=== PATIENT | male | born 1945 | race Caucasian/White ===

== ENCOUNTER 2017-05-22 09:46 | Emergency (ER) | payer MEDICARE ==
[~2017-05-22] VITALS: Ht 185.4 cm; Wt 110.2 kg
[~2017-05-22 09:46] MED LIST: ALBU90OI INH; ALLO300 PO; AZIT250 PO; BUME1 PO; BUME2 PO; CLIN300 PO; Cyclobenzaprine5 MG PO; DABI150C; DABI150C PO; GABA800 PO; HYDR1TAB94 PO; LOSA25 PO; LOSA50 PO; MAGIC MOUTHWASH; Norco 5-325 Ta1 EACH PO; PRAV20 PO; PRED20 PO; VERA120ERB PO
[2017-05-22] MEDS ORDERED: XARELTO20 MG PO (10:09)
[2017-05-22 10:10] LABS: BASOPHILS ABSOLUTE AUTO 0.08 K/mm3 (0.00-0.23); BASOPHILS PERCENT AUTO 1 % (0-2); EOSINOPHILS PERCENT AUTO 1 % (0-6); Hematocrit 46.8 % (37.0-53.0); Hemoglobin 15.7 g/dL (13.5-17.5); IMMATURE GRAN ABSOLUTE AUTO 0.06 K/mm3 (0.00-0.10); IMMATURE GRAN PERCENT AUTO 0 % (0-1); LYMPHOCYTES ABSOLUTE AUTO 1.53 K/mm3 (0.84-5.20); LYMPHOCYTES PERCENT AUTO 10 % (21-46); MONOCYTES ABSOLUTE AUTO 1.56 K/mm3 (0.16-1.47); MONOCYTES PERCENT AUTO 10 % (4-13); Mean Corpuscular HGB 29.7 pg (26.0-34.0); Mean Corpuscular HGB Conc 33.5 g/dL (31.5-36.5); Mean Corpuscular Volume 89 fL (80-100); Mean Platelet Volume 10.4 fL (9.1-12.4); NEUTROPHILS ABSOLUTE AUTO 11.86 K/mm3 (1.96-9.15); NEUTROPHILS PERCENT AUTO 78 % (41-73); Platelet Count 507 K/mm3 (150-400); RDW Coefficient Variation 14.5 % (11.7-14.2); RDW Standard Deviation 46.8 fL (35.1-46.3); Red Blood Cell Count 5.29 M/mm3 (4.30-5.90); White Blood Cell Count 15.29 K/mm3 (4.00-11.30)
[2017-05-22 10:24] LABS: Alanine Aminotransfer (ALT/SGP 28 U/L (12-78); Albumin, Blood 4.3 g/dL (3.4-5.0); Albumin/Globulin Ratio 1.4 (0.8-1.8); Alk Phos 68 U/L (50-136); Anion Gap 5 mmol/L (6-16); Aspartate Aminotrans (AST/SGOT 17 U/L (12-37); Bilirubin, Total 1.1 mg/dL (0.1-1.0); Blood Urea Nitrogen 14 mg/dL (8-24); Bun/Creatinine Ratio 15.4 (12.0-20.0); CO2, Blood 30 mmol/L (21-32); Calcium, Blood 9.1 mg/dL (8.5-10.1); Chloride, Blood 101 mmol/L (98-108); Creatinine, Blood 0.91 mg/dL (0.60-1.20); Globulin, Blood 3.1 g/dL (2.2-4.0); Glomerular Filtration Rate >60 (60-); Glucose, Blood 94 mg/dL (70-99); Potassium, Blood 4.2 mmol/L (3.5-5.5); Sodium, Blood 136 mmol/L (136-145); Total Protein, Blood 7.4 g/dL (6.4-8.2); Troponin I <0.015 ng/mL (0.000-0.040)
[2017-05-22] MEDS ORDERED: Celebrex200 MG PO (11:55)
[2017-05-22] MEDS ORDERED: Protonix40 MG PO (11:55)
== END 2017-05-22 12:08 | disposition home or self-care (01) ==
LOC: ER 09:46
PROVIDERS: Emergency Medicine
DX: I31.9 Disease of pericardium, unspecified (principal); I48.91 Unspecified atrial fibrillation; I10 Essential (primary) hypertension; M10.9 Gout, unspecified; Z90.79 Acquired absence of other genital organ(s); Z79.899 Other long term (current) drug therapy; Z88.8 Allergy status to other drugs, medicaments and biological substances; Z98.890 Other specified postprocedural states; Z87.891 Personal history of nicotine dependence; Z85.46 Personal history of malignant neoplasm of prostate
CPT/HCPCS: 71046; 80053; 83880; 84484; 85025; 86140; 93005; 93010; 96372; 99283; J1885

== ENCOUNTER 2019-08-16 09:29 | Inpatient (IN) | payer MEDICARE ==
[~2019-08-16] VITALS: Ht 182.9 cm; Wt 113.4 kg
[~2019-08-16 09:29] MED LIST changes: +Celebrex200 MG PO; +Protonix40 MG PO; +XARELTO20 MG PO
[2019-08-16 09:54] LABS: BASOPHILS ABSOLUTE AUTO 0.15 K/mm3 (0.00-0.23); BASOPHILS PERCENT AUTO 1 % (0-2); EOSINOPHILS ABSOLUTE AUTO 0.19 K/mm3 (0.00-0.68); EOSINOPHILS PERCENT AUTO 1 % (0-6); Hematocrit 33.1 % (37.0-53.0); Hemoglobin 11.7 g/dL (13.5-17.5); IMMATURE GRAN ABSOLUTE AUTO 0.09 K/mm3 (0.00-0.10); IMMATURE GRAN PERCENT AUTO 1 % (0-1); LYMPHOCYTES ABSOLUTE AUTO 1.77 K/mm3 (0.84-5.20); LYMPHOCYTES PERCENT AUTO 13 % (21-46); MONOCYTES ABSOLUTE AUTO 1.18 K/mm3 (0.16-1.47); MONOCYTES PERCENT AUTO 8 % (4-13); Mean Corpuscular HGB 31.3 pg (26.0-34.0); Mean Corpuscular HGB Conc 35.3 g/dL (31.5-36.5); Mean Corpuscular Volume 89 fL (80-100); Mean Platelet Volume 10.3 fL (9.1-12.4); NEUTROPHILS ABSOLUTE AUTO 10.63 K/mm3 (1.96-9.15); NEUTROPHILS PERCENT AUTO 76 % (41-73); Platelet Count 674 K/mm3 (150-400); RDW Coefficient Variation 14.4 % (11.7-14.2); RDW Standard Deviation 46.3 fL (35.1-46.3); Red Blood Cell Count 3.74 M/mm3 (4.30-5.90); White Blood Cell Count 14.01 K/mm3 (4.00-11.30)
[2019-08-16 10:04] LABS: Albumin, Blood 3.4 g/dL (3.4-5.0); Albumin/Globulin Ratio 1.2 (0.8-1.8); Bilirubin, Total 0.5 mg/dL (0.1-1.0); Bun/Creatinine Ratio 20.4 (12.0-20.0); Calcium, Blood 8.5 mg/dL (8.5-10.1); Creatinine, Blood 1.47 mg/dL (0.60-1.20); Globulin, Blood 2.8 g/dL (2.2-4.0); Potassium, Blood 3.1 mmol/L (3.5-5.5); Total Protein, Blood 6.2 g/dL (6.4-8.2)
[2019-08-16 11:43] LABS: Source, Urine Clean Catch
[2019-08-16 12:07] LABS: Appearance, Urine Clear (Clear); Bilirubin, Urine Neg (Neg); Blood, Urine Neg (Neg); Color, Urine Yellow (P-Yellow); Glucose Qualitative, Urine Neg (Neg); Ketones, Urine Neg (Neg); Leukocyte Esterase, Urine Neg (Neg); Nitrite, Urine Neg (Neg); Protein, Urine Neg (Neg); Specific Gravity, Urine 1.015 (1.003-1.022); Urobilinogen, Urine NORM (Normal)
[2019-08-16] MEDS ORDERED: VERAPAMIL PO ×2 (13:52→13:53)
[2019-08-16] MEDS ORDERED: ABIRATERONE AC250 MG PO (13:53)
[2019-08-16] MEDS ORDERED: PRED5 PO (13:53)
[2019-08-16] MEDS ORDERED: Bumetanide2 MG PO (13:54)
[2019-08-16] MEDS ORDERED: NORTRIPTYLINE H25 MG PO (13:54)
[2019-08-16] MEDS ORDERED: LOSARTAN POTAS100 M1 PO (13:55)
[2019-08-16] MEDS ORDERED: DYAZIDE 37.5-21 EACH PO (13:55)
[2019-08-16] MEDS ORDERED: ALLO300 PO (14:16)
[2019-08-16] MEDS ORDERED: XARELTO20 M1 PO (14:20)
[2019-08-17 04:27] LABS: BASOPHILS ABSOLUTE AUTO 0.06 K/mm3 (0.00-0.23); BASOPHILS PERCENT AUTO 0 % (0-2); EOSINOPHILS ABSOLUTE AUTO 0.02 K/mm3 (0.00-0.68); EOSINOPHILS PERCENT AUTO 0 % (0-6); Hematocrit 33.5 % (37.0-53.0); Hemoglobin 11.4 g/dL (13.5-17.5); IMMATURE GRAN PERCENT AUTO 1 % (0-1); LYMPHOCYTES ABSOLUTE AUTO 1.03 K/mm3 (0.84-5.20); LYMPHOCYTES PERCENT AUTO 6 % (21-46); MONOCYTES ABSOLUTE AUTO 0.51 K/mm3 (0.16-1.47); MONOCYTES PERCENT AUTO 3 % (4-13); Mean Corpuscular HGB 30.8 pg (26.0-34.0); Mean Corpuscular Volume 91 fL (80-100); NEUTROPHILS ABSOLUTE AUTO 14.26 K/mm3 (1.96-9.15); NEUTROPHILS PERCENT AUTO 89 % (41-73); Platelet Count 566 K/mm3 (150-400); RDW Coefficient Variation 14.5 % (11.7-14.2); RDW Standard Deviation 47.8 fL (35.1-46.3); White Blood Cell Count 16.08 K/mm3 (4.00-11.30)
[2019-08-17 04:42] LABS: Bun/Creatinine Ratio 21.4 (12.0-20.0); Calcium, Blood 8.7 mg/dL (8.5-10.1); Creatinine, Blood 1.26 mg/dL (0.60-1.20)
--- NOTE | 2019-08-17 05:26 | NUR ---
SHIFT SUMMARY: PATIENT ALERT AND ORIENTED AND COOPERATIVE WITH CARE. PATIENT ABLE TO STANB BY BED WITH FWW TO USE THE URINAL, MINIMAL ASSIST NEEDED. VSS, CALL LIGHT WITHIN REACH, BED LOW AND LOCKED WITH EXIT ALARM ON.
--- NOTE | 2019-08-17 09:45 | NUR ---
PT STATUS CHANGED TO MEDICAL STATUS WITHOUT TELE, VITALS HAS BEEN STABLE FOR THE SHIFT HRR AFIB ON THE 90'S DENIES CHEST PAIN/PRESSURE. SATS ABOVE 92% ON ROOMAIR, DENIES SOB. PT STILL C/O OF SOME LEG WEAKNESS PHYSICAL THERAPY ORDERED. USES FWW 1PA FOR TRANSFERS. 500 MLS NS BAG STARTED AT 200MLS/HR FOR 1 BAG. LABS ORDERED THIS AFTERNOON. LAST CBG WAS 126. PT TRANSFERRED TO 337 VIA WHEELCHAIR ACCOMPANIED BY SPINE SUPERVISOR. ALL BELONGINGS AND HOME MEDICATIONS SENT WITH PATIENT. REPORT GIVEN TO GINGER PERRY RN.
[2019-08-17] MEDS ORDERED: METANX PO (09:58)
[2019-08-17] MEDS ORDERED: ZYTIGA250 MG PO (09:58)
--- NOTE | 2019-08-17 10:29 | NUR ---
PCU TRANSFER- PT ARRIVED TO ROOM 337 VIA W/C, 1 ASSIST INTO CHAIR. PT A/OX4, DENIES ANY PAIN OR OTHER COMPLAINTS. LS CLEAR, ON RA. PT REPORTS CHRONIC DRY COUGH. PT REPORTS CHRONIC NEUROPAHTY, PT REQUESTING HOME MED METANX. CALLED AND SPOKE WITH DR ROBBINS AND OK TO START HOME MED. LEFT ARM NOTED TO BE SWOLLEN, IV DC'D. NS RUNNING AT 200ML/HR X500ML TO RAC IV. PT ORIENTED TO ROOM AND CALL SYSTEM, CALL LIGHT IN REACH.
--- NOTE | 2019-08-17 11:41 | NUR ---
PT BLOOD GLUCOSE NOTED TO BE 53, PT ASYMPTOMATIC. ORANGE JUICE GIVEN WELL LUNCH. WILL CONT TO MONITOR.
[2019-08-17 13:51] LABS: Bun/Creatinine Ratio 20.7 (12.0-20.0); Calcium, Blood 9.2 mg/dL (8.5-10.1); Creatinine, Blood 1.35 mg/dL (0.60-1.20); Potassium, Blood 3.7 mmol/L (3.5-5.5)
--- NOTE | 2019-08-17 15:21 | NUR ---
SHIFT SUMMARY- PCU TRANSFER TODAY. PT A/OX4, 1 ASSIST WITH FWW. PT DENIES ANY COMPLAINTS SINCE ARRIVAL TO FLOOR. LS CLEAR, ON RA. PT WITH CHRONIC AFIB. 500ML NS GIVEN FOR NA OF 126, NA REMAINS AT 125 WITH AFTERNOON LABS. AFTERNOON BLOOD GLUCOSE OF 53, OJ AND LUNCH GIVEN AND GLUCOSE INCREASED TO 123. PER DR ROBBINS NOTIFY HIM IF GLUCOSE LESS THAN 70. NO OTHER ACUTE CHANGES SINCE ARRIVAL TO FLOOR.
--- NOTE | 2019-08-17 17:23 | NUR ---
CBG WAS NOTIFIED BY THE PRIVATE WEALTH ADVISOR THAT THE CBG WAS 36, CALLED DR ROBBINS, SEE NEW ORDERS, STAT LABS DRAWN, PT GIVEN JUICE, PT REPORTS FEELING SHAKY, WILL START FLUIDS WELL
--- NOTE | 2019-08-17 17:39 | NUR ---
Pt resting in bed upon arrival. Pt is A&O and denies pain and dyspnea at this time. Pt reports significant pain when standing and ambulating due to mta to the bones. Pt reports living by himself and family lives in [place]. Pt reports seeing oncologist in [place]. Dr Du in to visit with Pt and discusses plan including additional lab draws. Pt's blood sugars have been running low with most recent sugar in the 30's. Continued conversation. Suggested having a conversation with his oncologist regarding pain management to assist in improving quality of life. Pt is receptive to this discussion. Pt's dinner arrives and this RN ends visit. Pt agreeable for continued Palliative Care visits. Spoke with Bedside LETTY Mcknight and discussed case. Palliative Care will remain available.
--- NOTE | 2019-08-17 17:52 | NUR ---
SNACKS EDUCATED PT ABOUT THE IMPORTANCE TO EAT EVERY FEW HOURS, SNACKS THAT CAN REMAIN AT THE BEDSIDE PROVIDED
[2019-08-17 18:11] LABS: Bun/Creatinine Ratio 20.9 (12.0-20.0); Calcium, Blood 9.1 mg/dL (8.5-10.1); Creatinine, Blood 1.34 mg/dL (0.60-1.20); Potassium, Blood 3.5 mmol/L (3.5-5.5)
--- NOTE | 2019-08-18 04:03 | NUR ---
SHIFT SUMMARY PT HAS RESTED WELL THIS SHIFT. BLOOD SUGARS HAVE BEEN STABLE WITH REPEATED CHECKS ORDERED. PT HAS BEEN EDUCATED TO CALL IF HE FEELS THE EFFECTS OF HYPOGLYCEMIA AND HAS BEEN PROVIDED SNACKS. PT HAS RECEIVED ONE FULL LITER OF DEXTROSE 5%. VITALS HAVE BEEN STABLE. PT REPORTS NO BM IN FOUR DAYS. DAYSHIFT PROVIDED PT WITH TWO SMALL CONTAINERS OF PRUNE JUICE AND HE HAS HAD THREE LOOSE STOOLS. PT A/OX4, PLESANT WITH CARE. 1 PA OOB. BED IN LOWEST POSITION, CALL LIGHT WITHIN REACH. WILL CONTINUE TO MONITOR AND REPORT TO ONCOMING RN.
--- NOTE | 2019-08-18 05:59 | NUR ---
BLOOD GLUCOSE BLOOD GLUCOSE 87 WITH AM CHECK. PT ATE SOME RAMIN CRACKERS. PT NOW EATING MANDARIN ORANGES WITH LIGHT SYRUP TO KEEP BG UP. PT STATES HE IS FEELING OK.
[2019-08-18 07:08] LABS: C-PEPTIDE, SERUM 12.4 ng/mL (1.1-4.4)
--- NOTE | 2019-08-18 10:29 | NUR ---
Pt resting in bed and denies pain at this time. Listened as Pt discusses plan for SNF and appears to be agreeable. Pt reports hospice was mentioned by staff and he is not ready for hospice. Listened as Pt reports planing for the future as the cancer takes its coarse. He inquires how to be placed into a highter level of care. Instructed on ways for payment source and on level of need. Pt reports being a Vet and would like to investigate benefits available to hime from the [facility]. Continued therapeutic listening and answered questions. Pt expresses appreciation of visit and reports no other concerns at this time. Spoke with Bedside RN Lion and discussed case. Spoke with Caremanbalbina Lerma and relayed Pt's concerns. Maria Guadalupe will call [place] and assist. Palliative Care will remain available.
[2019-08-18 12:22] LABS: Glucose, Blood 92 mg/dL (70-99)
--- NOTE | 2019-08-18 12:54 | NUR ---
SON CALLED and stated that his father is drunk most days that he starts out with beer in the am and progresses to vodka, informed and said to start him on a ciwa, finger stick came back at 37, called for stat blood draw as directed by , came back 82, said to stop all finger ck's, pt is a+o, was given oj after blood draw, also at all of lunch, states he is feeling great, noted fingers are blue and tremulos
[2019-08-18 15:48] LABS: Bun/Creatinine Ratio 16.8 (12.0-20.0); Calcium, Blood 8.9 mg/dL (8.5-10.1); Creatinine, Blood 1.37 mg/dL (0.60-1.20); Potassium, Blood 4.1 mmol/L (3.5-5.5)
--- NOTE | 2019-08-18 18:07 | NUR ---
A+O, CWIWA OF 4 R/TREMOR, FINGERS AND TOES REMAIN CYNOTIC, PT STATES NORMAL, WARM BUT SLOW TO PROFUSE, CALL LIGHT IN REACH, DENIES FEELING AN S/SX OF HYPOCLYCIMIA, SALINE LOCKED, RM AIR, NO ACUTE CHANGES NOTED DURING SHIFT WILL SHARE BSR WITH NOC NURSE AND PT
--- NOTE | 2019-08-18 18:31 | NUR ---
Initial spiritual care note: Mr. Eric was pleasantly dismissive. He states that he is awaiting bloodwork results to determine POC with regard to his cancer. He admitted to feeling concerned, but did not wish to elaborate. I will remain available.
[2019-08-19 05:44] LABS: Anion Gap 3 mmol/L (6-16); Blood Urea Nitrogen 23 mg/dL (8-24); Bun/Creatinine Ratio 18.5 (12.0-20.0); CO2, Blood 32 mmol/L (21-32); Calcium, Blood 9.2 mg/dL (8.5-10.1); Chloride, Blood 96 mmol/L (98-108); Creatinine, Blood 1.24 mg/dL (0.60-1.20); Glomerular Filtration Rate >60 (60-); Glucose, Blood 108 mg/dL (70-99); Potassium, Blood 3.9 mmol/L (3.5-5.5); Sodium, Blood 131 mmol/L (136-145)
--- NOTE | 2019-08-19 06:33 | NUR ---
SHIFT SUMMARY A/O, ABLE TO MAKE NEEDS KNOWN. COOPERATIVE WITH CARE. CALLS AND ANSWERS QUESTIONS APPROPRIATELY. NO C/O PAIN/DISCOMFORT. APPEARED TO SLEEP SOME T/O SHIFT. NO ACUTE CHANGES NOTED OVERNIGHT. VSS/AFEBRILE. GLUCOSE THIS AM 108. BED REMAINED IN LOWEST POSITION. CALL LIGHT AND BELONGINGS WITHIN REACH. WCTM. REPORT TO ONCPATSY RN.
--- NOTE | 2019-08-19 17:10 | NUR ---
a+o, states he wants to wait one more day to work with pt and then go home rather than to a snf, call light in reach, saline locked, rm air, will continue to monoitor and treat until share bsr with noc nurse and pt, fingers less blue,
[2019-08-20 05:20] LABS: Bun/Creatinine Ratio 16.3 (12.0-20.0); Calcium, Blood 8.9 mg/dL (8.5-10.1); Creatinine, Blood 1.29 mg/dL (0.60-1.20); Potassium, Blood 3.9 mmol/L (3.5-5.5)
--- NOTE | 2019-08-20 07:13 | NUR ---
08/20/19 0600 Pt awake and watching TV.. States he slept on and off.Vitals stable. Denies any s/s or discomfort this shift.Uneventful night.
[2019-08-20] MEDS ORDERED: BUME1 PO (12:12)
--- NOTE | 2019-08-20 13:07 | NUR ---
PT TO DISCHARGE HOME. IV REMOVED. PT EDUCATED REGARDING NEW MED ADMINISTRATION AND DOSE. MEDS FAXED TO PHARMACY. PT INSTRUCTED TO FOLLOW UP WITH DOCTOR. PT TAKEN DOWN BY WC TO CAR AND TAKEN HOME WITH TAO
== END 2019-08-20 12:34 | disposition home health service (06) | DRG 315 ==
LOC: ER 09:29 → PCU 09:30 → MEDS 08-17 09:49
PROVIDERS: Emergency Medicine; Physician Assistant; ADMIT Hospitalist
DX: I95.9 Hypotension, unspecified (principal); I50.22 Chronic systolic (congestive) heart failure; I48.20 Chronic atrial fibrillation, unspecified; C79.51 Secondary malignant neoplasm of bone; Z87.891 Personal history of nicotine dependence; M10.9 Gout, unspecified; I11.0 Hypertensive heart disease with heart failure; E16.2 Hypoglycemia, unspecified; E86.1 Hypovolemia; E87.6 Hypokalemia; C61 Malignant neoplasm of prostate; R29.6 Repeated falls; T50.1X5A Adverse effect of loop [high-ceiling] diuretics, initial encounter; Y92.9 Unspecified place or not applicable
CPT/HCPCS: 36415; 70450; 71045; 76705; 80048; 80053; 81003; 82024; 82533; 82947; 83525; 83527; 83605; 83880; 84206; 84681; 85025; 87040; 93005; 93010; 96361; 96365; 96366; 96368; 96375; 96376; 97110; 97116; 97162; 97530; 99285-25; G0378; J1720; J2543; J7030; J7040; J7060; J7070

== ENCOUNTER → 2019-10-20 | Outpatient (CLI) | payer MEDICARE ==
[~2019-10-20] MED LIST changes: +ABIRATERONE AC250 MG PO; +Bumetanide2 MG PO; +DYAZIDE 37.5-21 EACH PO; +LOSARTAN POTAS100 M1 PO; +METANX PO; +NORTRIPTYLINE H25 MG PO; +PRED5 PO; +VERAPAMIL PO; +XARELTO20 M1 PO; +ZYTIGA250 MG PO
== END | disposition home or self-care (01) ==
LOC: PLD 13:23 → LAB SHORT 13:23
DX: L60.2 Onychogryphosis (principal); B35.1 Tinea unguium
CPT/HCPCS: 88305; 88312

== ENCOUNTER 2020-11-22 10:22 | Emergency (ER) | payer MEDICARE ==
[~2020-11-22] VITALS: Ht 182.9 cm; Wt 119.8 kg
[2020-11-22 10:48] LABS: BASOPHILS ABSOLUTE AUTO 0.17 K/mm3 (0.00-0.23); BASOPHILS PERCENT AUTO 1 % (0-2); EOSINOPHILS ABSOLUTE AUTO 0.02 K/mm3 (0.00-0.68); EOSINOPHILS PERCENT AUTO 0 % (0-6); Hematocrit 36.5 % (37.0-53.0); Hemoglobin 11.6 g/dL (13.5-17.5); IMMATURE GRAN ABSOLUTE AUTO 0.39 K/mm3 (0.00-0.10); IMMATURE GRAN PERCENT AUTO 2 % (0-1); LYMPHOCYTES ABSOLUTE AUTO 0.98 K/mm3 (0.84-5.20); LYMPHOCYTES PERCENT AUTO 5 % (21-46); MONOCYTES ABSOLUTE AUTO 0.57 K/mm3 (0.16-1.47); MONOCYTES PERCENT AUTO 3 % (4-13); Mean Corpuscular HGB 27.3 pg (26.0-34.0); Mean Corpuscular HGB Conc 31.8 g/dL (31.5-36.5); Mean Corpuscular Volume 86 fL (80-100); Mean Platelet Volume 10.2 fL (9.1-12.4); NEUTROPHILS ABSOLUTE AUTO 17.54 K/mm3 (1.96-9.15); NEUTROPHILS PERCENT AUTO 89 % (41-73); Platelet Count 668 K/mm3 (150-400); RDW Coefficient Variation 17.6 % (11.7-14.2); RDW Standard Deviation 54.6 fL (35.1-46.3); Red Blood Cell Count 4.25 M/mm3 (4.30-5.90); White Blood Cell Count 19.67 K/mm3 (4.00-11.30)
[2020-11-22 11:07] LABS: Alanine Aminotransfer (ALT/SGP 17 U/L (12-78); Albumin, Blood 3.3 g/dL (3.4-5.0); Albumin/Globulin Ratio 1.2 (0.8-1.8); Alk Phos 158 U/L (50-136); Anion Gap 6 mmol/L (6-16); Aspartate Aminotrans (AST/SGOT 11 U/L (12-37); Bilirubin, Total 0.6 mg/dL (0.1-1.0); Blood Urea Nitrogen 6 mg/dL (8-24); Bun/Creatinine Ratio 6.2 (12.0-20.0); CO2, Blood 26 mmol/L (21-32); Calcium, Blood 7.6 mg/dL (8.5-10.1); Chloride, Blood 109 mmol/L (98-108); Creatinine, Blood 0.96 mg/dL (0.60-1.20); Globulin, Blood 2.7 g/dL (2.2-4.0); Glomerular Filtration Rate >60 (60-); Glucose, Blood 98 mg/dL (70-99); Sodium, Blood 141 mmol/L (136-145)
[2020-11-22 12:36] LABS: Source, Urine Clean Catch
[2020-11-22 12:49] LABS: Bilirubin, Urine Neg (Neg); Blood, Urine Neg (Neg); Color, Urine Yellow (P-Yellow); Glucose Qualitative, Urine Neg (Neg); Ketones, Urine Neg (Neg); Leukocyte Esterase, Urine Neg (Neg); Nitrite, Urine Neg (Neg); Protein, Urine Neg (Neg); Urobilinogen, Urine NORM (Normal)
[2020-11-22 13:08] LABS: Appearance, Urine Clear (Clear)
[2020-11-22 13:34] LABS: SARS-Cov-2 (COVID-19) PCR, MMC NEGATIVE (NEGATIVE)
== END 2020-11-22 14:50 | disposition home or self-care (01) ==
LOC: ER 10:22
PROVIDERS: Emergency Medicine
DX: R42 Dizziness and giddiness (principal); D72.829 Elevated white blood cell count, unspecified; Z20.822 Contact with and (suspected) exposure to COVID-19; I11.0 Hypertensive heart disease with heart failure; I50.20 Unspecified systolic (congestive) heart failure; I48.20 Chronic atrial fibrillation, unspecified; M10.9 Gout, unspecified; Z79.01 Long term (current) use of anticoagulants; Z88.8 Allergy status to other drugs, medicaments and biological substances; Z79.899 Other long term (current) drug therapy; Z85.46 Personal history of malignant neoplasm of prostate
CPT/HCPCS: 36415; 70450; 71045; 80053; 81003; 83605; 84145; 84484; 85025; 93005; 93010; 99285-25; A9270; J7030; U0004

== ENCOUNTER 2021-07-08 08:05 | Emergency (ER) | payer OTHER ==
[~2021-07-08] VITALS: Ht 182.9 cm; Wt 111.1 kg
[2021-07-08] MEDS ORDERED: ONDA4ODT MM (08:18)
[2021-07-08] MEDS ORDERED: DECADRON4 M1 PO (08:19)
[2021-07-08 09:04] LABS: Mean Corpuscular HGB 29.8 pg (26.0-34.0); Mean Corpuscular HGB Conc 32.4 g/dL (31.5-36.5); Mean Corpuscular Volume 92 fL (80-100); Mean Platelet Volume 11.3 fL (9.1-12.4); Platelet Count 214 K/mm3 (150-400); RDW Coefficient Variation 18.4 % (11.7-14.2); Red Blood Cell Count 3.69 M/mm3 (4.30-5.90); White Blood Cell Count 11.42 K/mm3 (4.00-11.30)
[2021-07-08 09:28] LABS: Alanine Aminotransfer (ALT/SGP 35 U/L (12-78); Albumin, Blood 3.1 g/dL (3.4-5.0); Albumin/Globulin Ratio 1.3 (0.8-1.8); Alk Phos 164 U/L (50-136); Anion Gap 6 mmol/L (6-16); Aspartate Aminotrans (AST/SGOT 20 U/L (12-37); Bilirubin, Total 0.8 mg/dL (0.1-1.0); Blood Urea Nitrogen 15 mg/dL (8-24); Bun/Creatinine Ratio 17.5 (12.0-20.0); CO2, Blood 28 mmol/L (21-32); Calcium, Blood 7.5 mg/dL (8.5-10.1); Chloride, Blood 105 mmol/L (98-108); Creatinine, Blood 0.86 mg/dL (0.60-1.20); Globulin, Blood 2.4 g/dL (2.2-4.0); Glomerular Filtration Rate >60 (60-); Glucose, Blood 93 mg/dL (70-99); Sodium, Blood 139 mmol/L (136-145); Total Protein, Blood 5.5 g/dL (6.4-8.2)
[2021-07-08 09:43] LABS: Source, Urine Clean Catch
[2021-07-08 09:49] LABS: BAND PERCENT MAN 22 % (0-8); BASOPHILS PERCENT MAN 0 % (0-2); EOSINOPHILS ABSOLUTE MAN 0.11 K/mm3 (0.00-0.68); EOSINOPHILS PERCENT MAN 1 % (0-6); LYMPHOCYTES ABSOLUTE MAN 1.02 K/mm3 (0.84-5.20); LYMPHOCYTES PERCENT MAN 9 % (21-46); MONOCYTES ABSOLUTE MAN 0.57 K/mm3 (0.16-1.47); MONOCYTES PERCENT MAN 5 % (4-13); TOTAL CELLS COUNTED 100
[2021-07-08 09:54] LABS: Appearance, Urine Cloudy (Clear); Bilirubin, Urine Neg (Neg); Blood, Urine 5+ (Neg); Glucose Qualitative, Urine Neg (Neg); Ketones, Urine Neg (Neg); Leukocyte Esterase, Urine 1+ (Neg); Nitrite, Urine Neg (Neg); Protein, Urine 3+ (Neg); Urobilinogen, Urine NORM (Normal); pH, Urine 6.5 (5.0-8.0)
[2021-07-08 10:00] LABS: SEG NEUTROPHILS PERCENT MAN 63 % (41-73)
[2021-07-08 10:06] LABS: Color, Urine Red (P-Yellow)
[2021-07-08 10:07] LABS: Bacteria Few /hpf; Red Blood Cells, Urine TNTC /hpf (0-2); Squamous Epithelial Cells Not Seen /hpf (Few)
[2021-07-08] MEDS ORDERED: SULTRIDS PO (10:24)
== END 2021-07-08 10:55 | disposition home or self-care (01) ==
LOC: ER 08:05
PROVIDERS: Student in an Organized Health Care Education/Training Program
DX: N30.91 Cystitis, unspecified with hematuria (principal); C61 Malignant neoplasm of prostate; C79.51 Secondary malignant neoplasm of bone; C79.2 Secondary malignant neoplasm of skin; I48.91 Unspecified atrial fibrillation; I11.0 Hypertensive heart disease with heart failure; I50.20 Unspecified systolic (congestive) heart failure; Z88.8 Allergy status to other drugs, medicaments and biological substances; Z79.899 Other long term (current) drug therapy; Z79.01 Long term (current) use of anticoagulants
CPT/HCPCS: 74177; 80053; 81001; 85025; A9270; Q9967

== ENCOUNTER 2021-08-30 11:44 | Inpatient (IN) | payer OTHER ==
[~2021-08-30] VITALS: Ht 177.8 cm; Wt 113.6 kg
[~2021-08-30 11:44] MED LIST changes: +CIPR500 PO; +DECADRON4 M1 PO; +ONDA4ODT MM; +SULTRIDS PO
[2021-08-30 12:46] LABS: Hematocrit 24.9 % (37.0-53.0); Hemoglobin 8.2 g/dL (13.5-17.5); Mean Corpuscular HGB 30.4 pg (26.0-34.0); Mean Corpuscular HGB Conc 32.9 g/dL (31.5-36.5); Mean Corpuscular Volume 92 fL (80-100); RDW Coefficient Variation 16.1 % (11.7-14.2); RDW Standard Deviation 54.1 fL (35.1-46.3)
[2021-08-30 12:59] LABS: Albumin, Blood 2.9 g/dL (3.4-5.0); Albumin/Globulin Ratio 1.2 (0.8-1.8); Bilirubin, Total 0.9 mg/dL (0.1-1.0); Bun/Creatinine Ratio 19.6 (12.0-20.0); Calcium, Blood 7.8 mg/dL (8.5-10.1); Creatinine, Blood 0.82 mg/dL (0.60-1.20); Globulin, Blood 2.4 g/dL (2.2-4.0); Total Protein, Blood 5.3 g/dL (6.4-8.2)
[2021-08-30 13:16] LABS: White Blood Cell Count 0.53 K/mm3 (4.00-11.30)
[2021-08-30 13:17] LABS: Platelet Count 26 K/mm3 (150-400)
[2021-08-30 13:30] LABS: BAND PERCENT MAN 4 % (0-8); BASOPHILS ABSOLUTE MAN 0.02 K/mm3 (0.00-0.23); BASOPHILS PERCENT MAN 4 % (0-2); EOSINOPHILS PERCENT MAN 0 % (0-6); LYMPHOCYTES PERCENT MAN 76 % (21-46); MONOCYTES ABSOLUTE MAN 0.06 K/mm3 (0.16-1.47); MONOCYTES PERCENT MAN 12 % (4-13); NEUTROPHILS ABSOLUTE MAN 0.04 K/mm3 (1.96-9.15); SEG NEUTROPHILS PERCENT MAN 4 % (41-73); TOTAL CELLS COUNTED 25
[2021-08-30 14:51] LABS: Source, Urine Clean Catch
[2021-08-30 14:53] LABS: Appearance, Urine Clear (Clear); Bilirubin, Urine Neg (Neg); Blood, Urine Neg (Neg); Color, Urine Yellow (P-Yellow); Glucose Qualitative, Urine Neg (Neg); Ketones, Urine Neg (Neg); Leukocyte Esterase, Urine Neg (Neg); Nitrite, Urine Neg (Neg); Protein, Urine Neg (Neg); Specific Gravity, Urine 1.005 (1.003-1.022); Urobilinogen, Urine NORM (Normal)
[2021-08-30 16:46] LABS: Influenza A, PCR NEGATIVE (NEGATIVE); Influenza B, PCR NEGATIVE (NEGATIVE); Resp Syncytial Virus, PCR NEGATIVE (NEGATIVE); SARS-Cov-2 (COVID-19) PCR, MMC NEGATIVE (NEGATIVE)
--- NOTE | 2021-08-30 19:16 | NUR ---
SHIFT SUMMARY- PT ALERT AND ORIENTED 1P SBA FOR TRANSFERS AND AMBULATION. PPT ADMITTED THROUGH THE ED, DENIES ANY PAIN. CALLED PALLIATIVE CARE FOR ASSISTANCE WITH FILLING OUT THE ADVANCED DIRECTIVE. PT STATED HE IS CURRENTLY A FULL CODE BUT HE DOES NOT WANT TO BE ON [facility] FOR MORE THAN 10 DAYS. PT CURRENTLY IN BED, CALL LIGHT IN REACH NO S&S OF DISTRESS NOTED ON ROOM AIR. BEDSIDE REPORT COMPLETED
[2021-08-31] MEDS ORDERED: ELIQUIS2.5 MG PO (00:36)
[2021-08-31 05:15] LABS: Bun/Creatinine Ratio 17.4 (12.0-20.0); Calcium, Blood 7.7 mg/dL (8.5-10.1); Creatinine, Blood 0.81 mg/dL (0.60-1.20); Potassium, Blood 3.9 mmol/L (3.5-5.5)
--- NOTE | 2021-08-31 05:21 | NUR ---
PT A/OX4, VERY PLEASANT AND LUIS FELIPE TO MAKE NEEDS KNOWN. PER RN REPORT REQUEST FOR PT MEDICATION LIST [facility] TO [facility] AND AWAITING DOCUMENT. PT ASKED ABOUT HIS MEDICATIONS AND LUIS FELIPE TO PROVIDE SOME INFORMATION HOWEVER HE IS NOT 100% SURE. PER PT HE NO LONGER TAKES THE STEROID AND XARELTO WAS STOPPED AND CHANGED TO ELIQUIS BID. HE IS UNSURE OF THE DOSE OF THE ELIQUIS. PT ALSO REPORTS THE BUMEX WAS INCREASED TO 1.5 MG AND IT IS DAILY NOT EVERY OTHER DAY. MED LIST UPDATED HOWEVER DUE TO PT NOT BEING 100% SURE OF THIS WILL AWAIT FOR LIST TO COMPLETE. VERAPIMIL HELD OVERNIGHT DUE TO BP 105/62. PT ALSO REPORTS THAT HE TAKES THIS IN THE MORNING NOT AT NIGHT-TIMING MODIFIED TO REFLECT PT SCHEDULE. PT W/O NEW COMPLAINS OR CHANGES.
[2021-08-31 06:12] LABS: Hematocrit 23.9 % (37.0-53.0); Hemoglobin 7.6 g/dL (13.5-17.5); Mean Corpuscular HGB Conc 31.8 g/dL (31.5-36.5); Mean Corpuscular Volume 95 fL (80-100); Mean Platelet Volume 12.5 fL (9.1-12.4); RDW Standard Deviation 54.9 fL (35.1-46.3); Red Blood Cell Count 2.53 M/mm3 (4.30-5.90)
[2021-08-31 07:16] LABS: BAND PERCENT MAN 2 % (0-8); BASOPHILS PERCENT MAN 4 % (0-2); EOSINOPHILS PERCENT MAN 1 % (0-6); LYMPHOCYTES PERCENT MAN 49 % (21-46); METAMYELOCYTE PERCENT MAN 1 % (0-0); MONOCYTES PERCENT MAN 18 % (4-13); SEG NEUTROPHILS PERCENT MAN 25 % (41-73); TOTAL CELLS COUNTED 100
[2021-08-31 07:19] LABS: BASOPHILS ABSOLUTE AUTO 0.01 K/mm3 (0.00-0.23); BASOPHILS PERCENT AUTO 1 % (0-2); EOSINOPHILS PERCENT AUTO 0 % (0-6); IMMATURE GRAN ABSOLUTE AUTO 0.01 K/mm3 (0.00-0.10); IMMATURE GRAN PERCENT AUTO 1 % (0-1); LYMPHOCYTES ABSOLUTE AUTO 0.46 K/mm3 (0.84-5.20); LYMPHOCYTES PERCENT AUTO 51 % (21-46); MONOCYTES ABSOLUTE AUTO 0.12 K/mm3 (0.16-1.47); MONOCYTES PERCENT AUTO 13 % (4-13); NEUTROPHILS ABSOLUTE MAN 0.24 K/mm3 (1.96-9.15); NEUTROPHILS PERCENT AUTO 33 % (41-73)
[2021-08-31 07:21] LABS: Platelet Count 21 K/mm3 (150-400)
--- NOTE | 2021-08-31 07:28 | NUR ---
PT WITH POSITIVE BLOOD CX GRAM + COCCI IN CHAINS, WBC 0.9 AND PLT 21. LAB ALSO WANTING TO KNOW IF PT WILL BE NEEDING PLATELET TRANSFUSION TO ENSURE THEY HAVE PLT AVAILABLE. ENDORSE TO ONCOMING RN. RN TO NOTIFY MD OF ABOVE.
[2021-08-31] MEDS ORDERED: MECL12.5 PO (11:33)
[2021-08-31] MEDS ORDERED: POTA10T PO (11:40)
[2021-08-31] MEDS ORDERED: Prednisone10 MG PO (11:43)
[2021-08-31] MEDS ORDERED: VITAMIN D5000 UNIT PO (11:48)
--- NOTE | 2021-08-31 11:49 | NUR ---
Spiritual Care Request. Pt. is awake in bed and welcomes my visit. After introductions he denied requesting spiritual care, but this manager of supply chain normalized the pt. expereince and continued to develop rapport. Pt. verbalized awareness of the serious nature of his cancer, and that the doctors have just about "run out of options." With a calming presence and theraputic listening continued to build rapport. Though Pt. wasn't interested in spiritual care, Pt. verbalize a request that I return.
[2021-08-31] MEDS ORDERED: ALEVAZOL56.7 G1 TOP (11:53)
[2021-08-31] MEDS ORDERED: GORMEL TEN228 G1 TOP (11:54)
[2021-08-31] MEDS ORDERED: PRAV20 PO (11:56)
[2021-08-31] MEDS ORDERED: DECADRON4 M1 PO (11:59)
--- NOTE | 2021-08-31 12:13 | NUR ---
pt anxious waiting for Dr Eugene to come see him. He want to wait to fill out his AD he is not sure the physician will offer him any more treatment. Discussed his future he lives alone in a rental up in [place]. Asked if he would move to [place] to be by his son. He did not want to do that and burden his sone. He stated he has been falling and fell out of his jeep. gently started a conversation on planning for the future. Updated college and career counselor will follow up with pt after Dr. Eugene speaks to him.
--- NOTE | 2021-08-31 19:40 | NUR ---
PATIENT IS ALERT AND ORIENTED. C/O SORE THROAT, MEDICATED PER EMAR. SBA TO THE BATHROOM. CALLS APPROPRIATELY. NO NEW CONCERNS.
[2021-09-01 05:22] LABS: Hematocrit 27.8 % (37.0-53.0); Hemoglobin 8.7 g/dL (13.5-17.5); Mean Corpuscular HGB Conc 31.3 g/dL (31.5-36.5); Mean Corpuscular Volume 96 fL (80-100); RDW Coefficient Variation 16.2 % (11.7-14.2); RDW Standard Deviation 56.3 fL (35.1-46.3); White Blood Cell Count 2.18 K/mm3 (4.00-11.30)
--- NOTE | 2021-09-01 05:24 | NUR ---
PATIENT IS A&OX4 AND VERY PLEASANT AND COOPERATIVE WITH CARE. DEEDEE DID HAVE DIFFICULTY SLEEPING UNTIL HE RECEIVED CORRECTED DOSE OF NORTRIPTYLINE (100MG) AFTER MIDNIGHT. MINIMAL COMPLAINTS OF DISCOMFORT OTHER THAN LOW BACK WHICH IS CHRONIC FOR HIM. HE WAS ABLE TO RESOLVE THAT WITH ASSISTED POSITION CHANGES. CEPACOL LOSENGES GIVEN TWICE PER REQUEST FOR SORE THROAT. WEAK. CALLS APPROPRIATELY PLACED FOR ASSIST OOB.
[2021-09-01 05:56] LABS: Mean Platelet Volume 12.8 fL (9.1-12.4); Platelet Count 35 K/mm3 (150-400)
[2021-09-01 06:12] LABS: BAND PERCENT MAN 16 % (0-8); BASOPHILS ABSOLUTE MAN 0.04 K/mm3 (0.00-0.23); BASOPHILS PERCENT MAN 2 % (0-2); EOSINOPHILS ABSOLUTE MAN 0.02 K/mm3 (0.00-0.68); EOSINOPHILS PERCENT MAN 1 % (0-6); LYMPHOCYTES ABSOLUTE MAN 0.45 K/mm3 (0.84-5.20); LYMPHOCYTES PERCENT MAN 21 % (21-46); METAMYELOCYTE ABSOLUTE MAN 0.02 K/mm3 (0.00-0.00); METAMYELOCYTE PERCENT MAN 1 % (0-0); MONOCYTES ABSOLUTE MAN 0.39 K/mm3 (0.16-1.47); MONOCYTES PERCENT MAN 18 % (4-13); MYELOCYTE ABSOLUTE MAN 0.08 K/mm3 (0.00-0.00); MYELOCYTE PERCENT MAN 4 % (0-0); NEUTROPHILS ABSOLUTE MAN 1.15 K/mm3 (1.96-9.15); SEG NEUTROPHILS PERCENT MAN 37 % (41-73); TOTAL CELLS COUNTED 100
--- NOTE | 2021-09-01 08:00 | NUR ---
pt laying in bed watching tv, a/ox3, pleasant and cooperative with care, follows commands well, denies pain, or any needs, lungs are dim t/o, resp even and unlabored, no cough noted, on r/a, hrirr, tele in place, running afib per montior, see strip, trace edema noted to b/l le, voids without diff, skin has red lower ext from knee down, no open areas, muscles are very hard, pt can ambulate using a walker, but he reports he is unsteady and has been having falls, piv to rac, site is clear and patent, jagjit, call light in reach.
--- NOTE | 2021-09-01 18:11 | NUR ---
pt had an uneventful day, no complaints of pain, no acute changes this shift. call light in reach.
[2021-09-02 06:02] LABS: Hematocrit 27.5 % (37.0-53.0); Hemoglobin 8.8 g/dL (13.5-17.5); Mean Corpuscular HGB 30.3 pg (26.0-34.0); Mean Corpuscular Volume 95 fL (80-100); Mean Platelet Volume 11.3 fL (9.1-12.4); NRBC ABSOLUTE 0.03 K/mm3 (0.00-0.02); NRBC Auto 0.7 /100 WBC (0.0-0.2); Platelet Count 65 K/mm3 (150-400); RDW Coefficient Variation 15.9 % (11.7-14.2); RDW Standard Deviation 54.5 fL (35.1-46.3); White Blood Cell Count 4.61 K/mm3 (4.00-11.30)
--- NOTE | 2021-09-02 06:07 | NUR ---
DEEDEE HAD A MUCH BETTER SLEEP HE RECEIVED HIS FULL DOSE OF PAMELOR AT HS. NO COMPLAINTS OF PAIN OR DISCOMFORT OTHER THAN REQUEST FOR A CEPACOL LOSENGE FOR HIS THROAT. PATIENT IS PLEASANT AND COOPERATIVE WITH CARE. HE IS A LITTLE BAFFLED BY HIS MD NOT TALKING ABOUT HIS PROGNOSIS OR FUTURE OPTIONS.
[2021-09-02 06:30] LABS: BAND PERCENT MAN 14 % (0-8); BASOPHILS ABSOLUTE MAN 0.13 K/mm3 (0.00-0.23); BASOPHILS PERCENT MAN 3 % (0-2); EOSINOPHILS PERCENT MAN 0 % (0-6); LYMPHOCYTES ABSOLUTE MAN 1.01 K/mm3 (0.84-5.20); LYMPHOCYTES PERCENT MAN 22 % (21-46); MONOCYTES PERCENT MAN 11 % (4-13); MYELOCYTE ABSOLUTE MAN 0.18 K/mm3 (0.00-0.00); MYELOCYTE PERCENT MAN 4 % (0-0); NEUTROPHILS ABSOLUTE MAN 2.76 K/mm3 (1.96-9.15); SEG NEUTROPHILS PERCENT MAN 46 % (41-73); TOTAL CELLS COUNTED 100
--- NOTE | 2021-09-02 08:00 | NUR ---
Pt laying in bed awake a/ox3, pleasant and coopertive with care, follows commands well, denies pain, just reports a persistant cough, lungs are clear in upper lisa, dim in bases, resp even and unlabored, on r/a, hrirr, tele in place running afib per monitor, see strip, edema noted to b/l le, ppp+1, cap refill< 3 sec, vs stable, afebrile, iv site is clear and patent, btx4, abd flat soft nontender, voids without diff, skin has pink le, otherwise c/w/d, maew, uses a walker to ambulate with sba, jagjit, call light in reach.
--- NOTE | 2021-09-02 17:55 | NUR ---
Pt had an uneventful day, is going to take a shower, but is too tired at this time, will wait until later, no acute changes this shift. his face was flushed for a few hrs, no needs or complaints this shift. call light in reach.
--- NOTE | 2021-09-03 09:00 | NUR ---
pt in good spirits this am, he reports he had a bad night and only slept 3 hrs, but feels good, a/ox3, pleasant and cooperative with care, follows commands well, denies pain, lungs are clear t/o, resp even and unlabored, no cough noted, hrr, +1 edema noted to b/l le, ppp+1, cap refill <3 sec, vs stable, afebrile, iv site to rac is clear and patent, btx4, abd round soft nontender, voids without diff, skin c/w/d, maew, jagjit, call light in reach.
--- NOTE | 2021-09-03 18:37 | NUR ---
Pt continues to be to fatigued to shower, is walking himself into the bathroom, otherwise doing ok, no acute changes this shift. did medicate for nausia this evening. call light in reach.
[2021-09-04 04:56] LABS: Hematocrit 28.3 % (37.0-53.0); Hemoglobin 8.8 g/dL (13.5-17.5); Mean Corpuscular HGB 30.2 pg (26.0-34.0); Mean Corpuscular HGB Conc 31.1 g/dL (31.5-36.5); Mean Corpuscular Volume 97 fL (80-100); Mean Platelet Volume 11.2 fL (9.1-12.4); NRBC ABSOLUTE 0.08 K/mm3 (0.00-0.02); NRBC Auto 0.9 /100 WBC (0.0-0.2); Platelet Count 126 K/mm3 (150-400); RDW Coefficient Variation 16.9 % (11.7-14.2); RDW Standard Deviation 57.7 fL (35.1-46.3); Red Blood Cell Count 2.91 M/mm3 (4.30-5.90); White Blood Cell Count 8.47 K/mm3 (4.00-11.30)
[2021-09-04 05:13] LABS: Albumin, Blood 3.1 g/dL (3.4-5.0); Anion Gap 6 mmol/L (6-16); Blood Urea Nitrogen 15 mg/dL (8-24); Bun/Creatinine Ratio 18.2 (12.0-20.0); CO2, Blood 28 mmol/L (21-32); Calcium, Blood 8.1 mg/dL (8.5-10.1); Chloride, Blood 105 mmol/L (98-108); Creatinine, Blood 0.82 mg/dL (0.60-1.20); Glomerular Filtration Rate 91 (60-); Glucose, Blood 102 mg/dL (70-99); Phosphorus, Blood 3.3 mg/dL (2.5-4.9); Sodium, Blood 139 mmol/L (136-145)
[2021-09-04 05:43] LABS: BAND PERCENT MAN 7 % (0-8); BASOPHILS PERCENT MAN 0 % (0-2); EOSINOPHILS ABSOLUTE MAN 0.08 K/mm3 (0.00-0.68); EOSINOPHILS PERCENT MAN 1 % (0-6); LYMPHOCYTES ABSOLUTE MAN 1.35 K/mm3 (0.84-5.20); LYMPHOCYTES PERCENT MAN 16 % (21-46); METAMYELOCYTE ABSOLUTE MAN 0.16 K/mm3 (0.00-0.00); METAMYELOCYTE PERCENT MAN 2 % (0-0); MONOCYTES ABSOLUTE MAN 0.16 K/mm3 (0.16-1.47); MONOCYTES PERCENT MAN 2 % (4-13); MYELOCYTE ABSOLUTE MAN 0.59 K/mm3 (0.00-0.00); MYELOCYTE PERCENT MAN 7 % (0-0); NEUTROPHILS ABSOLUTE MAN 5.75 K/mm3 (1.96-9.15); PROMYELOCYTE ABSOLUTE MAN 0.33 K/mm3 (0.00-0.00); PROMYELOCYTE PERCENT MAN 4 % (0-0); SEG NEUTROPHILS PERCENT MAN 61 % (41-73); TOTAL CELLS COUNTED 100
--- NOTE | 2021-09-04 07:38 | NUR ---
PT [place] with remote hx of prostate cancer 25 years prior with turp & remission until recent metastatic disease & failed chemo. Was neuropenic which has resolved. He sees oncology MD James & PT says Chemo failed. Lives alone had 7 falls at home due to metastatic cancer & weakness. Bowel care started for no BM since . Med with 5 mg melatonin at hs with good relief on insommnia. Denies pain
[2021-09-04] MEDS ORDERED: MELATONIN 5 MG1 EACH PO (11:54)
[2021-09-04] MEDS ORDERED: MIRALAX17 GM PO (11:54)
[2021-09-04] MEDS ORDERED: CEFD300 PO (11:55)
[2021-09-04] MEDS ORDERED: VISBIOME 112.51 EACH PO (11:55)
== END 2021-09-04 13:07 | disposition home health service (06) | DRG 809 ==
LOC: ER 11:44 → MEDS 15:32
PROVIDERS: Emergency Medicine; Internal Medicine; ADMIT Internal Medicine
DX: D61.810 Antineoplastic chemotherapy induced pancytopenia (principal); C79.51 Secondary malignant neoplasm of bone; I48.20 Chronic atrial fibrillation, unspecified; I50.22 Chronic systolic (congestive) heart failure; Z20.822 Contact with and (suspected) exposure to COVID-19; C61 Malignant neoplasm of prostate; J02.0 Streptococcal pharyngitis; D70.1 Agranulocytosis secondary to cancer chemotherapy; B95.0 Streptococcus, group A, as the cause of diseases classified elsewhere; I11.0 Hypertensive heart disease with heart failure; M10.9 Gout, unspecified; E78.5 Hyperlipidemia, unspecified; F32.A Depression, unspecified; F41.9 Anxiety disorder, unspecified; G62.9 Polyneuropathy, unspecified; K59.00 Constipation, unspecified; T45.1X5A Adverse effect of antineoplastic and immunosuppressive drugs, initial encounter; Z90.79 Acquired absence of other genital organ(s); Z98.49 Cataract extraction status, unspecified eye; Z98.1 Arthrodesis status; Z98.890 Other specified postprocedural states; Z90.89 Acquired absence of other organs; Z87.891 Personal history of nicotine dependence; Z88.8 Allergy status to other drugs, medicaments and biological substances; Z79.899 Other long term (current) drug therapy; Z79.01 Long term (current) use of anticoagulants
CPT/HCPCS: 0241U; 36415; 71046; 80048; 80053; 80069; 81003; 83605; 85025; 86308; 87040; 87430; 93005; 93010; 93306; 96374; 96375; 96376; 97110; 97116; 97162; 99285-25; A9270; G0378; J0696; J2405; J3370; J7030; J7040; J7060

== ENCOUNTER → 2021-10-15 | Outpatient (CLI) | payer OTHER ==
[~2021-10-15] MED LIST changes: +ALEVAZOL56.7 G1 TOP; +CEFD300 PO; +ELIQUIS2.5 MG PO; +GORMEL TEN228 G1 TOP; +MECL12.5 PO; +MELATONIN 5 MG1 EACH PO; +MIRALAX17 GM PO; +POTA10T PO; +Prednisone10 MG PO; +VISBIOME 112.51 EACH PO; +VITAMIN D5000 UNIT PO
[2021-10-15 09:42] LABS: Hematocrit 31.4 % (37.0-53.0); Hemoglobin 9.8 g/dL (13.5-17.5); Mean Corpuscular HGB 30.3 pg (26.0-34.0); Mean Corpuscular HGB Conc 31.2 g/dL (31.5-36.5); Mean Corpuscular Volume 97 fL (80-100); Mean Platelet Volume 10.6 fL (9.1-12.4); NRBC ABSOLUTE 0.03 K/mm3 (0.00-0.02); NRBC Auto 0.3 /100 WBC (0.0-0.2); Platelet Count 221 K/mm3 (150-400); RDW Coefficient Variation 17.9 % (11.7-14.2); RDW Standard Deviation 59.4 fL (35.1-46.3); Red Blood Cell Count 3.23 M/mm3 (4.30-5.90); White Blood Cell Count 11.87 K/mm3 (4.00-11.30)
[2021-10-15 10:26] LABS: Alanine Aminotransfer (ALT/SGP 23 U/L (12-78); Albumin, Blood 3.3 g/dL (3.4-5.0); Albumin/Globulin Ratio 1.2 (0.8-1.8); Alk Phos 303 U/L (50-136); Anion Gap 8 mmol/L (6-16); Aspartate Aminotrans (AST/SGOT 21 U/L (12-37); Bilirubin, Total 0.7 mg/dL (0.1-1.0); Blood Urea Nitrogen 11 mg/dL (8-24); Bun/Creatinine Ratio 9.9 (12.0-20.0); CO2, Blood 25 mmol/L (21-32); Calcium, Blood 6.8 mg/dL (8.5-10.1); Chloride, Blood 104 mmol/L (98-108); Creatinine, Blood 1.11 mg/dL (0.60-1.20); Globulin, Blood 2.8 g/dL (2.2-4.0); Glomerular Filtration Rate 69 (60-); Glucose, Blood 73 mg/dL (70-99); Potassium, Blood 4.6 mmol/L (3.5-5.5); Sodium, Blood 137 mmol/L (136-145); Total Protein, Blood 6.1 g/dL (6.4-8.2)
[2021-10-15 10:39] LABS: BAND PERCENT MAN 9 % (0-8); BASOPHILS ABSOLUTE MAN 0.23 K/mm3 (0.00-0.23); BASOPHILS PERCENT MAN 2 % (0-2); EOSINOPHILS PERCENT MAN 0 % (0-6); LYMPHOCYTES ABSOLUTE MAN 2.13 K/mm3 (0.84-5.20); LYMPHOCYTES PERCENT MAN 18 % (21-46); METAMYELOCYTE ABSOLUTE MAN 0.47 K/mm3 (0.00-0.00); METAMYELOCYTE PERCENT MAN 4 % (0-0); MONOCYTES PERCENT MAN 11 % (4-13); MYELOCYTE ABSOLUTE MAN 0.35 K/mm3 (0.00-0.00); MYELOCYTE PERCENT MAN 3 % (0-0); NEUTROPHILS ABSOLUTE MAN 7.24 K/mm3 (1.96-9.15); PROMYELOCYTE ABSOLUTE MAN 0.11 K/mm3 (0.00-0.00); PROMYELOCYTE PERCENT MAN 1 % (0-0); SEG NEUTROPHILS PERCENT MAN 52 % (41-73); TOTAL CELLS COUNTED 100
== END ==
LOC: LAB SHORT 09:37
PROVIDERS: Internal Medicine Hematology & Oncology
DX: C61 Malignant neoplasm of prostate (principal)
CPT/HCPCS: 80053; 84153; 85025

== ENCOUNTER 2021-11-02 08:31 | Inpatient (IN) | payer OTHER ==
[~2021-11-02] VITALS: Ht 182.9 cm; Wt 112.7 kg
[2021-11-02] MEDS ORDERED: CIPR500 PO (09:13)
[2021-11-02] MEDS ORDERED: Nortriptyline H50 MG PO (09:13)
[2021-11-02 09:22] LABS: Albumin, Blood 2.8 g/dL (3.4-5.0); Albumin/Globulin Ratio 1.1 (0.8-1.8); Bilirubin, Total 0.7 mg/dL (0.1-1.0); Bun/Creatinine Ratio 12.4 (12.0-20.0); Calcium, Blood 6.1 mg/dL (8.5-10.1); Creatinine, Blood 0.89 mg/dL (0.60-1.20); Globulin, Blood 2.5 g/dL (2.2-4.0); Potassium, Blood 3.6 mmol/L (3.5-5.5); Total Protein, Blood 5.3 g/dL (6.4-8.2)
[2021-11-02 10:14] LABS: Mean Corpuscular HGB 31.2 pg (26.0-34.0); Mean Corpuscular HGB Conc 33.5 g/dL (31.5-36.5); Mean Corpuscular Volume 93 fL (80-100); Mean Platelet Volume 12.3 fL (9.1-12.4); RDW Coefficient Variation 17.2 % (11.7-14.2); RDW Standard Deviation 57.2 fL (35.1-46.3); Red Blood Cell Count 1.86 M/mm3 (4.30-5.90); White Blood Cell Count 1.64 K/mm3 (4.00-11.30)
[2021-11-02 10:26] LABS: Platelet Count 22 K/mm3 (150-400)
[2021-11-02 10:27] LABS: Hematocrit 17.3 % (37.0-53.0); Hemoglobin 5.8 g/dL (13.5-17.5)
[2021-11-02 11:09] LABS: BASOPHILS ABSOLUTE MAN 0.01 K/mm3 (0.00-0.23); BASOPHILS PERCENT MAN 1 % (0-2); EOSINOPHILS PERCENT MAN 0 % (0-6); LYMPHOCYTES PERCENT MAN 37 % (21-46); MONOCYTES ABSOLUTE MAN 0.08 K/mm3 (0.16-1.47); MONOCYTES PERCENT MAN 5 % (4-13); NEUTROPHILS ABSOLUTE MAN 0.88 K/mm3 (1.96-9.15); PROMYELOCYTE ABSOLUTE MAN 0.04 K/mm3 (0.00-0.00); PROMYELOCYTE PERCENT MAN 3 % (0-0); SEG NEUTROPHILS PERCENT MAN 54 % (41-73); TOTAL CELLS COUNTED 100
[2021-11-02 11:41] LABS: Source, Urine Clean Catch
[2021-11-02 12:02] LABS: Appearance, Urine Clear (Clear); Bilirubin, Urine Neg (Neg); Blood, Urine Neg (Neg); Color, Urine Yellow (P-Yellow); Glucose Qualitative, Urine Neg (Neg); Ketones, Urine Neg (Neg); Leukocyte Esterase, Urine Neg (Neg); Nitrite, Urine Neg (Neg); Protein, Urine Neg (Neg); Specific Gravity, Urine 1.015 (1.003-1.022); Urobilinogen, Urine NORM (Normal)
--- NOTE | 2021-11-02 15:00 | NUR ---
ASSUMED CARE: PT ARRIVES FROM ED VIA GURNEY WITH 1L NC IN PLACE. O2 REMOVED ONCE REPOSITIONED IN BED DUE TO SATS BEING IN MID 90S. RIGHT EYE APPEARS TO HAVE BLOOD IN SCLERA. PT DENIES PAIN OR DISCOMFORT WITH IT. DENIES CURRENT BMS. ED STATES POSITIVE GUIAC. 1 UNIT PRBC INFUSING. DENIES FURTHER NEEDS OR CONCERNS AT THIS TIME.
--- NOTE | 2021-11-02 17:40 | NUR ---
SHIFT SUMMARY: PT RECIEVING SECOND UNIT OF BLOOD AT THIS TIME. BUMEX GIVEN BETWEEN UNITS. NPO, AWAITING GI CONSULT. CALL LIGHT IN REACH. VSS. DENIES NEEDS OR CONCERNS AT THIS TIME.
--- NOTE | 2021-11-02 18:59 | NUR ---
PT STATED HE WAS HUNGRY AND WAS ENQUIRING ABOUT GI CONSULT. CALL TO DR ERNANDEZ WHO STATES BECAUSE OF PT TAKING ELIQUIS, PROCEDURE CANNOT BE DONE FOR A FEW DAYS. PT NOW FULL LIQUID DIET. TO SEE PT LATER THIS EVENING.
[2021-11-02 21:07] LABS: Hemoglobin 7.8 g/dL (13.5-17.5)
[2021-11-02 21:09] LABS: Mean Platelet Volume 11.5 fL (9.1-12.4)
[2021-11-02 21:13] LABS: Platelet Count 31 K/mm3 (150-400)
[2021-11-03 05:42] LABS: Hematocrit 24.2 % (37.0-53.0); Hemoglobin 7.9 g/dL (13.5-17.5)
--- NOTE | 2021-11-03 05:46 | NUR ---
SHIFT SUMMARY ASSUMED CARE OF PT AT 1900. PT IS A/OX4. HEART SOUNDS REGULAR. TELE HAS BEEN SINUS. LUNG SOUNDS CLEAR. PT WORE CPAP WHILE SLEEPING. PT WAS ABLE TO STAND WITH 1P ASSIT TO USE URINAL. PT SKIN IS FRAGILE AND EASY TO TEAR. PT HAD NO NEW COMPLAINTS THIS SHIFT. DR ERNANDEZ TO SEE PT THIS EVENING, PT TOLD THIS NURSE DOCTOR DOESNT THINK PT NEEDS SCOPE AND CAN CHANGE HIS DIET TO REGUARL, BUT NO ORDERS RECEIVED.
[2021-11-03 06:14] LABS: Albumin, Blood 2.8 g/dL (3.4-5.0); Albumin/Globulin Ratio 1.2 (0.8-1.8); Bilirubin, Total 0.7 mg/dL (0.1-1.0); Bun/Creatinine Ratio 11.1 (12.0-20.0); Creatinine, Blood 0.9 mg/dL (0.60-1.20); Globulin, Blood 2.3 g/dL (2.2-4.0); Potassium, Blood 3.4 mmol/L (3.5-5.5); Total Protein, Blood 5.1 g/dL (6.4-8.2)
--- NOTE | 2021-11-03 07:14 | NUR ---
ASSUMED CARE: PT RESTING QUIETLY, CPAP IN PLACE. AFIB IN 90S AT THIS TIME. NO ACUTE NEEDS OR CONCERNS.
--- NOTE | 2021-11-03 17:26 | NUR ---
SHIFT SUMMARY: PT GOT OUT OF BED WITH WALKER A FEW TIMES TODAY. MEDICAL STATUS NO TELE. PLANS FOR REPEAT LABS IN AM. DRS LIKELY TO CHECK IN WITH ONCOLOGY ON FRIDAY. NO ACUTE NEEDS OR CONCERNS.
[2021-11-04 05:29] LABS: Hemoglobin 7.9 g/dL (13.5-17.5); Mean Corpuscular HGB 31.1 pg (26.0-34.0); Mean Corpuscular HGB Conc 32.9 g/dL (31.5-36.5); Mean Corpuscular Volume 95 fL (80-100); Mean Platelet Volume 11.1 fL (9.1-12.4); RDW Coefficient Variation 16.5 % (11.7-14.2); RDW Standard Deviation 55.4 fL (35.1-46.3); Red Blood Cell Count 2.54 M/mm3 (4.30-5.90)
[2021-11-04 05:37] LABS: Platelet Count 47 K/mm3 (150-400)
[2021-11-04 05:56] LABS: Albumin, Blood 2.9 g/dL (3.4-5.0); Anion Gap 5 mmol/L (6-16); Blood Urea Nitrogen 9 mg/dL (8-24); Bun/Creatinine Ratio 9.9 (12.0-20.0); CO2, Blood 28 mmol/L (21-32); Calcium, Blood 6.7 mg/dL (8.5-10.1); Chloride, Blood 104 mmol/L (98-108); Creatinine, Blood 0.91 mg/dL (0.60-1.20); Glomerular Filtration Rate 87 (60-); Glucose, Blood 96 mg/dL (70-99); Magnesium, Blood 1.2 mg/dL (1.6-2.4); Phosphorus, Blood 2.2 mg/dL (2.5-4.9); Potassium, Blood 3.2 mmol/L (3.5-5.5); Sodium, Blood 137 mmol/L (136-145)
--- NOTE | 2021-11-04 06:27 | NUR ---
Assumed care of pt at 1900. A/Ox4. SBA w/FWW for urinal use and BSC due to patient stating that he felt weak ambulating to bathroom on previous shift and felt more comfortable this way. Tremors noted BUE and BLE. R eye with scleral redness. No c/o CP/pressure, BP stable. Not on tele. RUE 2+ pitting edema, LUE 1+ pitting edema, BLE 1+ pitting edema. Bilateral calf SCD's. Pallor skin with red coccyx, red/warm shins bl, and ecchymosis scattered on both arms. Urine dark yellow with slightly foul odor. No BM this shift. Will report to sayda SAENZ.
--- NOTE | 2021-11-04 10:28 | NUR ---
TRANSFER SUMMARY: PATIENT WAS TRASFERRED BY PCT, ANS 2 RN'S INCLUDING THIS DIGITAL MEDIA STRATEGIST. PATIENT IN NO SIGN IOF ACUTE RESPIRATORY OR CARDIAC DISTRESS, DENIES CHEST PAIN OR SOB AT THIS TIME. SPO2 >94% ON RA. CPAP WAS ALSO TRANSFERRED, ELECTROLYTES STARTED AND REPORT GIVEN TO RECIEVING RN'S WITH ALL QUESTIONS COMMENTS AND CONCERNS ANSWERED AT THIS TIME. PATIENT HAS BEEN ALERT AND ORIENTED, ALL BELONGINGS WERE TRASFERRED WITH PATIENT TO ROOM 327 NO CONCERNS FROM THIS DIGITAL MEDIA STRATEGIST AT THIS TIME.
--- NOTE | 2021-11-04 12:00 | NUR ---
LATE ENTRY/PCU TRANSFER 1015: RECEIVED REPORT FROM HEIDE RN 1030: RECEIVED PT VIA BED TRANSFER. PLACED IN ROOM, MADE COMFORTABLE, ORIENTED TO ROOM & UNIT ROUTINE. ELECTROLYTE REPLACEMENT INFUSING PER MD ORDER. ON CONTINUOUS BI-OX, ON RA SATTING WELL INTO THE 90%'s AND 100%'s. NO COMPLAINTS AT THIS TIME.
--- NOTE | 2021-11-04 18:49 | NUR ---
SHIFT SUMMARY PT HAS BEEN UP IN CHAIR WATCVHING [employer]IOUS SPORTS ON TV TIL AFTER DINNER. HELPED HIM BACK TO BED. A&O X 4. VSS. PLEASANT & COOPERATIVE. PT IS 2 MOD ASSIST WITH FWW FOR BSC OR RESTROOM USE. NEEDS TO STAND TO URINATE AND NEEDS HELP WITH HOLDING THE URINAL. APPETITE IS GOOD. R EYE IS 'BLOOD SHOT'. HE STATES HE COUGHED HARD AND MD STATED HE LIKELY BURST SOME BLOOD VESSELS. HE HAS DENIED PAIN OR ANY DISCOMFORT. HE STATES HE'S LOOKING FORWARD TO SLEEPING TONIGHT BECUASE HE ONLY GOT 2 1/2 HRS OF SLEEP LAST NIGHT.
--- NOTE | 2021-11-05 04:40 | NUR ---
SHIFT SUMMARY PATIENT HAD NO ACUTE CHANGES. AXOX 4 AND TWO ASSIST TO BSC W/FWW. WATCHING TV FIRST PART OF SHIFT. DENIES CHEST PAIN, SOB, AND N/V. VSS/AFEBRILE. RT IN TO SETUP CPAP. REPORTED ONLY 2 1/2 HR SLEEP PREVIOUS NIGHT SO WANTING TO GO TO BED EARLY. SLEPT MOST OF SHIFT. COOPERATIVE WITH CARE. CALL LIGHT IN REACH. BED IN LOWEST POSITION. WILL CONTINUE TO MONITOR UNTIL DAY SHIFT NURSE ASSUMES CARE.
[2021-11-05 05:34] LABS: Hematocrit 22.6 % (37.0-53.0); Hemoglobin 7.4 g/dL (13.5-17.5); Mean Corpuscular HGB 30.8 pg (26.0-34.0); Mean Corpuscular HGB Conc 32.7 g/dL (31.5-36.5); Mean Corpuscular Volume 94 fL (80-100); Mean Platelet Volume 11.6 fL (9.1-12.4); Platelet Count 69 K/mm3 (150-400); RDW Coefficient Variation 16.8 % (11.7-14.2); White Blood Cell Count 4.73 K/mm3 (4.00-11.30)
[2021-11-05 06:01] LABS: Magnesium, Blood 1.4 mg/dL (1.6-2.4)
[2021-11-05 06:02] LABS: Bun/Creatinine Ratio 9.9 (12.0-20.0); Calcium, Blood 6.1 mg/dL (8.5-10.1); Creatinine, Blood 0.91 mg/dL (0.60-1.20); Potassium, Blood 3.2 mmol/L (3.5-5.5)
--- NOTE | 2021-11-05 17:39 | NUR ---
DAYSHIFT SUMMARY Patient doing well today, vitals stable, reports feeling fatigued. Hgb stable, plan is to continue observation. Neutropenic precautions in place, vitals stable, afebrile. IV magnesium administerd this morning. Will continue to monitor
--- NOTE | 2021-11-06 04:07 | NUR ---
TUBE ROOM CASHIER SUMMARY REMAINS ON NEUTROPENIC PRECAUTIONS. WAS ASSISTED TO BED FROM BEDSIDE RECLINER AT WITH USE OF WALKER. COOPERATIVE. AFFECT CHEERFUL HE INTERACTED WITH STAFF. UP TO COMMODE WITH ASSIST. NO C/O PAIN OR DISTRESS OF THIS WRITING. O2 SET UP PER RT. NOTE HAND TREMORS WHEN IN THE ROOM WITH HIM. HAS BEEN RSETING QUIETLY WITH FEW INTERUPTIONS. CALL LIGHT IN REACH. RAILS UP X 2.
[2021-11-06 05:28] LABS: Hematocrit 23.4 % (37.0-53.0); Hemoglobin 7.5 g/dL (13.5-17.5); Mean Corpuscular HGB 30.5 pg (26.0-34.0); Mean Corpuscular HGB Conc 32.1 g/dL (31.5-36.5); Mean Corpuscular Volume 95 fL (80-100); Mean Platelet Volume 11.2 fL (9.1-12.4); Platelet Count 89 K/mm3 (150-400); RDW Coefficient Variation 17.2 % (11.7-14.2); RDW Standard Deviation 56.4 fL (35.1-46.3); Red Blood Cell Count 2.46 M/mm3 (4.30-5.90); White Blood Cell Count 5.42 K/mm3 (4.00-11.30)
[2021-11-06 05:49] LABS: Magnesium, Blood 1.5 mg/dL (1.6-2.4)
[2021-11-06 05:55] LABS: Bun/Creatinine Ratio 10.1 (12.0-20.0); Calcium, Blood 5.8 mg/dL (8.5-10.1); Creatinine, Blood 0.89 mg/dL (0.60-1.20); Potassium, Blood 3.4 mmol/L (3.5-5.5)
--- NOTE | 2021-11-06 06:01 | NUR ---
CRITICAL LAB VALUE CALCIUM LEVEL 5.8. DOWN FROM 6.1 YESTERDAY. CALL PLACED TO ZOE FELTON RECEIVED - SE MAY FOR DETAILS
--- NOTE | 2021-11-06 17:14 | NUR ---
DAYSHIFT SUMMARY Lab notifed RN of critical result, Ionized Calcium 0.72, verbally reported result to MD. WBC WNL, neutropenic precautions discontinued, per MD. CBC stable. IV Magnesium and Calcium Gluconate given. Vitals stable.
--- NOTE | 2021-11-06 23:28 | NUR ---
GARNETT MACHINE OPERATOR HELPER SUMMARY A/OX4; PT RESTING COMFORTABLE T/O SHIFT. NOTED PT NOT WEARING SEQ COMP DEVICE; REPORTS THEY WERE HURTING HIS LEGS AND REMOVED P/PT REQ. REDNESS AND SWELLING NOTED IN BLE. PT HAS HX OF AFIB AND TAKES ELIQUIS AT HOME; DR W/HOLDING ELIQUIS BECAUSE OF POSSIBLE EXPLORATORY SURG; PT REPORTS NO SURG AND WILL BE GOING HOME TOMORROW. WILL FOLLOW UP W/DR AND DAY SHIFT NURSE ABOUT STARTING BLOOD THINNER AND PLAN FOR DISCHARGE. CALL LIGHT IN REACH; BED IN LOW POSITION.
[2021-11-07 06:58] LABS: Hematocrit 24.3 % (37.0-53.0); Hemoglobin 7.6 g/dL (13.5-17.5); Mean Corpuscular HGB 30.2 pg (26.0-34.0); Mean Corpuscular HGB Conc 31.3 g/dL (31.5-36.5); Mean Corpuscular Volume 96 fL (80-100); Mean Platelet Volume 10.2 fL (9.1-12.4); Platelet Count 129 K/mm3 (150-400); RDW Coefficient Variation 17.6 % (11.7-14.2); RDW Standard Deviation 58.3 fL (35.1-46.3); Red Blood Cell Count 2.52 M/mm3 (4.30-5.90); White Blood Cell Count 6.25 K/mm3 (4.00-11.30)
[2021-11-07 08:44] LABS: Albumin, Blood 2.6 g/dL (3.4-5.0); Anion Gap 8 mmol/L (6-16); Blood Urea Nitrogen 8 mg/dL (8-24); Bun/Creatinine Ratio 9.5 (12.0-20.0); CO2, Blood 26 mmol/L (21-32); Chloride, Blood 105 mmol/L (98-108); Creatinine, Blood 0.84 mg/dL (0.60-1.20); Glomerular Filtration Rate 90 (60-); Glucose, Blood 94 mg/dL (70-99); Phosphorus, Blood 2.6 mg/dL (2.5-4.9); Potassium, Blood 3.8 mmol/L (3.5-5.5); Sodium, Blood 139 mmol/L (136-145)
[2021-11-07] MEDS ORDERED: ELIQUIS5 M2 PO (11:11)
[2021-11-07] MEDS ORDERED: OMEP20ER PO (11:13)
[2021-11-07] MEDS ORDERED: Calcium Carbon500 MG PO (11:15)
--- NOTE | 2021-11-07 11:39 | NUR ---
DISCHARGE SUMMARY: PATIENT A&OX4. UP WITH SBA TO MOVE AROUND IN ROOM & USES BATHROOM. DENIES SOB, CP/CHEST DISCOMFORT THIS SHIFT. VITAL SIGNS REVIEWED ON RA AND USES CPAP AT [facility]. RECIEVED ORDER CALCIUM PRIOR TO D/C. PATIENT D/C HOME. DISCHARGE INSTRUCTION PACKET GIVEN TO PATIENT. EDUCATE PATIENT REGARDING DX, S/S AND TREATMENT WELL MEDICATION. RX WAS FAXED TO PATIENT PREFERRED PHARMACY ([facility]). PATIENT STATED UNDERSTANDING AND NO FURTHER QUESTION.
== END 2021-11-07 13:00 | disposition home or self-care (01) | DRG 809 ==
LOC: ER 08:31 → PCU 13:01 → MEDS 11-04 09:26
PROVIDERS: Internal Medicine; Internal Medicine Gastroenterology; Nurse Practitioner Acute Care; Physician Assistant; ADMIT Internal Medicine
PROC: 30233N1 Transfusion of Nonautologous Red Blood Cells into Peripheral Vein, Percutaneous Approach (ICD-10-PCS; principal; 2021-11-02)
DX: D61.810 Antineoplastic chemotherapy induced pancytopenia (principal); C77.5 Secondary and unspecified malignant neoplasm of intrapelvic lymph nodes; C79.51 Secondary malignant neoplasm of bone; I48.20 Chronic atrial fibrillation, unspecified; I50.22 Chronic systolic (congestive) heart failure; E83.51 Hypocalcemia; E87.6 Hypokalemia; E83.42 Hypomagnesemia; C61 Malignant neoplasm of prostate; R19.5 Other fecal abnormalities; I11.0 Hypertensive heart disease with heart failure; D63.0 Anemia in neoplastic disease; M10.9 Gout, unspecified; E78.00 Pure hypercholesterolemia, unspecified; G62.9 Polyneuropathy, unspecified; K59.00 Constipation, unspecified; Z98.890 Other specified postprocedural states; Z98.42 Cataract extraction status, left eye; Z98.41 Cataract extraction status, right eye; Z79.01 Long term (current) use of anticoagulants; Z88.8 Allergy status to other drugs, medicaments and biological substances; Z79.899 Other long term (current) drug therapy; Z79.2 Long term (current) use of antibiotics; Z87.891 Personal history of nicotine dependence; T45.1X5A Adverse effect of antineoplastic and immunosuppressive drugs, initial encounter
CPT/HCPCS: 36415; 36430; 71046; 80048; 80053; 80069; 81003; 82330; 83735; 83880; 84484; 85014; 85018; 85025; 85027; 85049; 86850; 86900; 86901; 86923; 93005; 93010; 94660; 94762; 96374; 99285-25; A9270; C9113; J0610; J3475; J7030; J7060; P9016

== ENCOUNTER 2021-11-20 18:56 | Inpatient (IN) | payer OTHER ==
[~2021-11-20] VITALS: Ht 182.9 cm; Wt 120.0 kg
[~2021-11-20 18:56] MED LIST changes: +Calcium Carbon500 MG PO; +ELIQUIS5 M2 PO; +Nortriptyline H50 MG PO; +OMEP20ER PO
[2021-11-20 19:55] LABS: BASOPHILS ABSOLUTE AUTO 0.04 K/mm3 (0.00-0.23); BASOPHILS PERCENT AUTO 0 % (0-2); EOSINOPHILS ABSOLUTE AUTO 0.04 K/mm3 (0.00-0.68); EOSINOPHILS PERCENT AUTO 0 % (0-6); Hematocrit 26.6 % (37.0-53.0); Hemoglobin 8.5 g/dL (13.5-17.5); IMMATURE GRAN ABSOLUTE AUTO 0.19 K/mm3 (0.00-0.10); IMMATURE GRAN PERCENT AUTO 2 % (0-1); LYMPHOCYTES PERCENT AUTO 13 % (21-46); MONOCYTES ABSOLUTE AUTO 0.85 K/mm3 (0.16-1.47); MONOCYTES PERCENT AUTO 9 % (4-13); Mean Corpuscular HGB 30.7 pg (26.0-34.0); Mean Corpuscular Volume 96 fL (80-100); Mean Platelet Volume 9.7 fL (9.1-12.4); NEUTROPHILS ABSOLUTE AUTO 6.72 K/mm3 (1.96-9.15); NEUTROPHILS PERCENT AUTO 74 % (41-73); NRBC ABSOLUTE 0.03 K/mm3 (0.00-0.02); NRBC Auto 0.3 /100 WBC (0.0-0.2); Platelet Count 251 K/mm3 (150-400); RDW Coefficient Variation 19.9 % (11.7-14.2); RDW Standard Deviation 68.4 fL (35.1-46.3); Red Blood Cell Count 2.77 M/mm3 (4.30-5.90); White Blood Cell Count 9.04 K/mm3 (4.00-11.30)
[2021-11-20 20:19] LABS: Albumin, Blood 3.2 g/dL (3.4-5.0); Albumin/Globulin Ratio 1.4 (0.8-1.8); Bilirubin, Total 0.5 mg/dL (0.1-1.0); Calcium, Blood 6.2 mg/dL (8.5-10.1); Creatinine, Blood 1.11 mg/dL (0.60-1.20); Globulin, Blood 2.3 g/dL (2.2-4.0); Potassium, Blood 4.8 mmol/L (3.5-5.5); Total Protein, Blood 5.5 g/dL (6.4-8.2)
--- NOTE | 2021-11-21 05:37 | NUR ---
SHIFT SUMMARY PATIENT ADMITTED FROM ER AT 2345. PATIENT SETTLED INTO ROOM. PATIENT ORIENTED TO CALL LIGHT AND TV CONTROL. PATIENT DENIES PAIN, NAUSEA, AND SHORTNESS OF BREATH. PATIENT ATTEMPT TO STAND, VERY UNSTEADY AND TREMULOUS. PATIENT ASSISTED WITH URINAL IN BED. PATIENT HAS PITTING EDEMA IN ALL EXTREMITIES AND ABD. PATIENT A&O X4. PATIENT IS EATING AND DRINKING WELL. TELE READING AFIB WITH A BBB AT 77. PATIENT IS PLEASANT AND COOPERATIVE WITH CARE.
[2021-11-21 06:23] LABS: Bun/Creatinine Ratio 9.2 (12.0-20.0); Creatinine, Blood 1.2 mg/dL (0.60-1.20); Potassium, Blood 4.4 mmol/L (3.5-5.5)
[2021-11-21 11:15] LABS: PCO2 Venous 44.1 mmHg (38-42); pH Blood Venous 7.36 (7.34-7.37)
[2021-11-21 11:16] LABS: Base Excess Venous -0.8 mmol/L; Bicarbonate Venous 23.8 mmol/L (24.0-30.0)
[2021-11-21 12:20] LABS: Free Thyroxine 0.88 ng/dL (0.70-1.60)
[2021-11-21 12:21] LABS: Thyroid Stimulating Hormone 4.8 uIU/mL (0.360-4.800)
--- NOTE | 2021-11-21 17:40 | NUR ---
SHIFT SUMMARY PATIENT MEDICATED X1 WITH IMODIUM FOR LOOSE STOOLS. DENIES PAIN, NAUSEA, AND SHORTNESS OF BREATH AT REST. DYSPNEIC WHEN LAYING FLAT. EDEMA IN ALL EXTREMITIES, DIURESING W/IV BUMEX. TREMORS AT BASELINE. WORKED WITH PT, UP TO BSC 2 ASSIST. USES URINAL IN SIDELYING POSITION IN BED. PLEASANT AND COOPERATIVE WITH CARE.
--- NOTE | 2021-11-22 05:14 | NUR ---
SHIFT SUMMARY: PT IS ALERT AND ORIENTED. PT IS CALM, FRIENDLY, AND COOPERATIVE WITH CARE. PT CALLS APPROPRIATELY. PT IS A 1-2 ASSIST TO USE THE URINAL STANDING AT THE BEDSIDE WITH FWW. PT DENIES PAIN, NAUSEA, VOMITING, AND SOB. PT SLEPT INTERMITTENTLY THROUGHOUT THE NIGHT. NO ACUTE CHANGES OR COMPLICATIONS. BED IN LOW POSITION, CALL LIGHT WITHIN REACH. WILL CONTINUE TO MONITOR.
[2021-11-22 05:34] LABS: BASOPHILS ABSOLUTE AUTO 0.05 K/mm3 (0.00-0.23); BASOPHILS PERCENT AUTO 1 % (0-2); EOSINOPHILS ABSOLUTE AUTO 0.04 K/mm3 (0.00-0.68); EOSINOPHILS PERCENT AUTO 1 % (0-6); Hematocrit 26.7 % (37.0-53.0); Hemoglobin 8.3 g/dL (13.5-17.5); IMMATURE GRAN ABSOLUTE AUTO 0.11 K/mm3 (0.00-0.10); IMMATURE GRAN PERCENT AUTO 2 % (0-1); LYMPHOCYTES ABSOLUTE AUTO 1.18 K/mm3 (0.84-5.20); LYMPHOCYTES PERCENT AUTO 16 % (21-46); MONOCYTES ABSOLUTE AUTO 0.89 K/mm3 (0.16-1.47); MONOCYTES PERCENT AUTO 12 % (4-13); Mean Corpuscular HGB 30.7 pg (26.0-34.0); Mean Corpuscular HGB Conc 31.1 g/dL (31.5-36.5); Mean Corpuscular Volume 99 fL (80-100); Mean Platelet Volume 10.1 fL (9.1-12.4); NEUTROPHILS ABSOLUTE AUTO 5.21 K/mm3 (1.96-9.15); NEUTROPHILS PERCENT AUTO 70 % (41-73); Platelet Count 188 K/mm3 (150-400); RDW Coefficient Variation 20.2 % (11.7-14.2); RDW Standard Deviation 71.8 fL (35.1-46.3); White Blood Cell Count 7.48 K/mm3 (4.00-11.30)
[2021-11-22 06:05] LABS: Bun/Creatinine Ratio 10.3 (12.0-20.0); Calcium, Blood 5.4 mg/dL (8.5-10.1); Creatinine, Blood 1.36 mg/dL (0.60-1.20); Potassium, Blood 4.1 mmol/L (3.5-5.5)
[2021-11-22 13:58] LABS: Adenovirus F 40/41 Not Detected (NOT DETECT); Astrovirus Not Detected (NOT DETECT); Campylobacter Sp Not Detected (NOT DETECT); Cryptosporidium Not Detected (NOT DETECT); Cyclospora Cayetanensis Not Detected (NOT DETECT); E. Coli O157 Not Detected (NOT DETECT); Entamoeba Histolytica Not Detected (NOT DETECT); Enteroaggregative E. coli-EAEC Not Detected (NOT DETECT); Enteropathogenic E. coli-EPEC Not Detected (NOT DETECT); Enterotoxigenic E. coli-ETEC Not Detected (NOT DETECT); Giardia Lamblia Not Detected (NOT DETECT); Norovirus GI/GII Not Detected (NOT DETECT); Plesiomonas Shigelloides Not Detected (NOT DETECT); Rotavirus A Not Detected (NOT DETECT); Salmonella Sp Not Detected (NOT DETECT); Sapovirus Not Detected (NOT DETECT); Shiga Toxin-prod E. coli-STEC Not Detected (NOT DETECT); Shigella/Enteroin E. coli-EIEC Not Detected (NOT DETECT); Vibrio Cholerae Not Detected (NOT DETECT); Vibrio Sp Not Detected (NOT DETECT); Yersinia Enterocolitica Not Detected (NOT DETECT)
--- NOTE | 2021-11-22 14:02 | NUR ---
Supportive visit this afternoon. Pt is known to this global technical writer from previous hospital stay. Pt resting in bed and is A&O. Offered active listening as Pt resports struggling with ambulation and plan is for home health upon D/C. Listened as Pt report no doing well with treatment. He reports experiencing low platelets and low WBC after treatment. He also reports experiencing significant nausea. He reports being prescribed anti nausea medications that are beneficial. Discussed speaking with oncologist about side effects to determine if treatment can be adjusted. Discussed the importance of planning for the future including the potential of needing increased caregiver support. He report receiving some caregiver support through the [place] but plans to request additional support. Discussed options if treatment of his cancer becomes too burdensome. Pt tends to deflect conversation and discussion was not continued or pursued. Continued supportive visit. Palliative Care will remain available.
--- NOTE | 2021-11-22 18:13 | NUR ---
SHIFT SUMMARY PT WAS ABLE TO AMBULATE WITH PT. USES URINAL WITH STAFF ASSISTANCE. STOOL SAMPLE COLLECTED AND PT FOUND TO HAVE CDIFF. PRECAUTIONS PUT IN PLACE AND ABX STARTED. DENIES PAIN AND SOB. BED IN LOWEST POSITION AND CALL LIGHT IN REACH
[2021-11-23 05:40] LABS: Calcium, Blood 5.2 mg/dL (8.5-10.1); Creatinine, Blood 1.25 mg/dL (0.60-1.20); Potassium, Blood 3.7 mmol/L (3.5-5.5)
--- NOTE | 2021-11-23 06:14 | NUR ---
NOC SHIFT SUMMARY PT ADMITTED WITH CHF EXHACERBATION; DIURESED. C-DIFF + OF 11/22; ORAL VANCO STARTED. PT HAD CRITICAL CA THIS AM OF 5.2; 2 G IV INFUSING AT TIME OF THIS ENSCRIPTION. PT CONTINUES TO BE EXTREMELY WEAK AND TREMULOUS. NO OTHER ISSUES NOTE.
--- NOTE | 2021-11-23 18:42 | NUR ---
SHIFT SUMMARY PT WAS ABLE TO AMBULATE WITH PT. STILL REFUSING SNF. WILL MOST LIKELY DISCHARGE HOME. STILL TREATING CDIFF, BUT NO SOFT BMS THIS SHIFT. BED IN LOWEST POSITION AND CALL LIGHT IN REACH
--- NOTE | 2021-11-24 05:59 | NUR ---
NOC SHIFT SUMMARY PT HAD WEEPING EDEMA IN HIS RIGHT UPPER EXTREMETY DUE TO LIMB HANGING DOWN FOR SEVERAL HOURS. AFFECTED EXTREMITY WAS THEN PLACED ON A PILLOW FOR ELEVATION; EDEMA RECEDED QUICKLY. NO BM X 3 DAYS. NO ISSUES NOTED OVERNIGHT.
--- NOTE | 2021-11-24 20:09 | NUR ---
SHIFT SUMMARY PT AWAKE AT START OF SHIFT, WATCHING TV. VERY PLEASANT AND CO-OP WITH CARE. UP TO BTHRM USING FWW AND SBA THRU OUT THE DAY. FORMED STOOL X1 TODAY; HAS BEEN IN CONTACT [facility] FOR C-DIFF. DR BARRY HERE THIS AM TO SEE PT AND DISCUSS PLAN OF CARE. PT TO D/C TO HOME TOMORROW. PT HOPING TO GO EARLY. BLE'S WITH REDNESS AND SOME SWELLING; VERY TIGHT, THICK SKIN TO LEGS AND FEET. PT REPORTED MUCH IMPROVEMENT SINCE ADMISSION. EDEMA TO THIGHS AND HIPS WELL. SCABS TO TOES; PT REPORTED NEUROPATHY TO FEET. PT REPORTED LIVING ALONE, BUT HAS INTERNATIONAL EXCHANGE COORDINATOR TO ASSIST. DENIED FURTHER NEEDS. CALL LT IN REACH.
[2021-11-25 04:51] LABS: BASOPHILS ABSOLUTE AUTO 0.05 K/mm3 (0.00-0.23); BASOPHILS PERCENT AUTO 1 % (0-2); EOSINOPHILS PERCENT AUTO 2 % (0-6); Hemoglobin 8.4 g/dL (13.5-17.5); IMMATURE GRAN ABSOLUTE AUTO 0.07 K/mm3 (0.00-0.10); IMMATURE GRAN PERCENT AUTO 1 % (0-1); LYMPHOCYTES ABSOLUTE AUTO 1.14 K/mm3 (0.84-5.20); LYMPHOCYTES PERCENT AUTO 17 % (21-46); MONOCYTES ABSOLUTE AUTO 0.49 K/mm3 (0.16-1.47); MONOCYTES PERCENT AUTO 7 % (4-13); Mean Corpuscular HGB 30.7 pg (26.0-34.0); Mean Corpuscular HGB Conc 31.1 g/dL (31.5-36.5); Mean Corpuscular Volume 99 fL (80-100); Mean Platelet Volume 10.1 fL (9.1-12.4); NEUTROPHILS PERCENT AUTO 73 % (41-73); Platelet Count 165 K/mm3 (150-400); RDW Coefficient Variation 19.1 % (11.7-14.2); RDW Standard Deviation 69.6 fL (35.1-46.3); Red Blood Cell Count 2.74 M/mm3 (4.30-5.90); White Blood Cell Count 6.75 K/mm3 (4.00-11.30)
[2021-11-25 05:23] LABS: Magnesium, Blood 1.4 mg/dL (1.6-2.4)
[2021-11-25 05:36] LABS: Bun/Creatinine Ratio 13.7 (12.0-20.0); Calcium, Blood 5.4 mg/dL (8.5-10.1); Creatinine, Blood 0.88 mg/dL (0.60-1.20); Phosphorus, Blood 3.6 mg/dL (2.5-4.9); Potassium, Blood 3.3 mmol/L (3.5-5.5)
--- NOTE | 2021-11-25 07:37 | NUR ---
SHIFT SUMMARY PT CONTINUES TO HAVE CRITICAL CA; SUPPLEMENTED THIS AM. DIURESIS CONTINUES. NO OTHER ISSUES NOTED.
--- NOTE | 2021-11-25 18:23 | NUR ---
PATIETN DOING WELL THIS SHIFT. HE STILL HAS EDEMA ON ARMS, LEGS AND SOME ON THE BACK. HE HAD A VERY LOOSE STOOL THIS AM BUT NO MORE TO FOLLOW. HE STATES THAT HIS STOMACH HAS SOME PAIN, LIKE IT DOES BEFORE HE HAS DIARRHEA. PATIENT WAS ABLE TO EAT MEALS AND TAKE MEDICATIONS WITOUT TROUBLE.
--- NOTE | 2021-11-26 04:01 | NUR ---
SUMMARY: PT A/OX4, CALLS APPROPRIATELY TO SPECIFY NEEDS AND IS PLEASANT AND COOPERATIVE W/CARE. HE USED URINAL AD JARVIS AND WAS UP W/SBA TO TOILET FOR BM. STOOL WAS LIGHT COLORED W/MUCUS THIS SHIFT AND ATTENDS WERE CHANGED PRN FOR URGE INCONTINENCE. ANASARCA PERSISTS W/SWELLING TO RUE AND RLE WORSE THAN L.SIDE. PT SAYS R.ARM OCCASIONALLY WEEPS AND BLE'S ARE DARK RED IN COLOR AND TIGHT IN APPEARANCE. HE'S DENIED PAIN AND ALL OTHER COMPLAINTS. NO ACUTE CHANGES, VSS/AFEBRILE. WCTM AND REPORT TO DAY RN.
[2021-11-26 05:55] LABS: Albumin, Blood 2.7 g/dL (3.4-5.0); Anion Gap 6 mmol/L (6-16); Blood Urea Nitrogen 10 mg/dL (8-24); Bun/Creatinine Ratio 10.7 (12.0-20.0); CO2, Blood 29 mmol/L (21-32); Calcium, Blood 5.5 mg/dL (8.5-10.1); Chloride, Blood 102 mmol/L (98-108); Creatinine, Blood 0.94 mg/dL (0.60-1.20); Glomerular Filtration Rate 84 (60-); Glucose, Blood 94 mg/dL (70-99); Potassium, Blood 3.3 mmol/L (3.5-5.5); Sodium, Blood 137 mmol/L (136-145)
--- NOTE | 2021-11-26 17:11 | NUR ---
SHIFT SUMMARY NO ACUTE CHANGES DURING SHIFT. PT ALERT AND ORIENTED, FOLLOWS COMMANDS. REPEAT CDIFF SAMPLE ORDERED, PENDING. PT UP TO CHAIR DURING MEALS. AMBULATES WITH WALKER X 1 ASSIST. ELECTROLYTES CONTINUE TO BE REPLACED. CALL LIGHT WITHIN REACH.
--- NOTE | 2021-11-27 06:18 | NUR ---
SHIFT SUMMARY: IONIZED CALCIUM LEVEL IS TRENDING UP. THE REST OF THE PATIENTS ELECTROLYTE LEVELS ARE PENDING RESULTS FROM THIS AM'S BLOOD DRAW. A STOOL SPECIMEN WAS COLLECTED THIS AM, RESULTS ARE PENDING.THE PATINET IS ALERT AND OREINTED X3, HE IS WELCOMING AND OVERALL PLEASANT. THE PATINET HAS A TREMOR AFFCETING BOTH UPPER EXTREMITIES. THE PATINET BECOMES SHORT OF BREATHE WITH AMBULATING TO AND FROM BATHROOM. THE PATIENT IS A ONE PERSON ASSIST WITH A FFW. THE PATINET IS IN BED WITH THE BED IN THE LOWEST POSITION AND THE CALL LIGHT WITHIN REACH AT THIS TIME.
[2021-11-27 06:24] LABS: Albumin, Blood 2.8 g/dL (3.4-5.0); Anion Gap 7 mmol/L (6-16); Blood Urea Nitrogen 11 mg/dL (8-24); Bun/Creatinine Ratio 12.3 (12.0-20.0); CO2, Blood 28 mmol/L (21-32); Chloride, Blood 103 mmol/L (98-108); Glomerular Filtration Rate 89 (60-); Glucose, Blood 93 mg/dL (70-99); Phosphorus, Blood 2.9 mg/dL (2.5-4.9); Potassium, Blood 3.8 mmol/L (3.5-5.5); Sodium, Blood 138 mmol/L (136-145)
[2021-11-27 06:25] LABS: Calcium, Blood 5.8 mg/dL (8.5-10.1)
--- NOTE | 2021-11-27 06:49 | NUR ---
PT'S STOOL SAMPLE WAS COLLECTED THIS AM. THE PT'S STOOL SAMPLE WAS OBSERVED TO RESEMBLE SPUTUM IN THAT IT WAS WHITE/CLEAR, THICK AND STRETCHY.
[2021-11-27 07:42] LABS: C DIFFICILE DNA Duplicate (Negative)
--- NOTE | 2021-11-27 17:26 | NUR ---
SHIFT SUMMARY NO ACUTE CHANGES DURING SHIFT. PT ALERT AND ORIENTED. PT SBA WITH FWW. PT UP TO CHAIR FOR MEALS. BM X 1 TODAY, STILL CLEAR. ELECTROLYTES REPLACED, IMPROVING. PT REMAINS ON RA, SPO2 > 92%. NO C/O PAIN. CALL LIGHT WITHIN REACH.
--- NOTE | 2021-11-28 04:12 | NUR ---
INDEPENDENT BEAUTY CONSULTANT SUMMARY A&Ox4. PLEASANT AND COOPERATIVE WITH CARE. VSS. COMPLIANT WITH OXYGEN @ HS. LOTS OF TALKING IN HIS SLEEP, BUT OTHERWISE SLEEPING WELL. NEW Rx ARTIFICIAL TEARS Q4h PRN GIVEN x2 WITH MUCH RELIEF. AWAITING ENDOCRINOLOGY CONSULT TODAY. CONTINUED EDEMA IN BLEs. AMBULATES INDEPENDENTLY WITH FWW. WILL REPORT TO ONCOMING RN.
[2021-11-28 05:33] LABS: Bun/Creatinine Ratio 11.6 (12.0-20.0); Calcium, Blood 5.5 mg/dL (8.5-10.1); Creatinine, Blood 0.86 mg/dL (0.60-1.20); Potassium, Blood 3.6 mmol/L (3.5-5.5)
--- NOTE | 2021-11-28 18:02 | NUR ---
SHIFT SUMMARY NO ACUTE CHANGES DURING SHIFT. PT ALERT AND ORIENTED, FOLLOWS COMMANDS, CALLS APPROPRIATELY. PT RECEIVED MORE ELECTROLYTE REPLACEMENT TODAY. RECHECK IN AM. PT SBA TO BATHROOM WITH FWW. NO C/O PAIN. CALL LIGHT WITHIN REACH.
--- NOTE | 2021-11-29 04:52 | NUR ---
SHIFT SUMMARY 76 YR M ADMITTED ON 11/21/21 FOR ANASARCA. FULL CODE. NO ACUTE CHANGES THIS SHIFT. PT STATES THAT HE IS FEELING WELL AND HAS NO C/O N/V, PAIN, OR ABDOMINAL DISCOMFORT. HE STATED THAT HIS LAST CHEMO TX WAS ABOUT A MONTH AGO. HE REALLY LIKES THE ARTIFICIAL TEARS EYE DROPS HE STATES THAT THEY INSTANTLY COOL HIS EYES AND MAKE THEM FEEL BETTER. HE IS A VERY PLEASANT MAN AND IS COOPERATIVE WITH HIS CARE.
[2021-11-29 05:36] LABS: Magnesium, Blood 1.5 mg/dL (1.6-2.4)
[2021-11-29 05:44] LABS: Albumin, Blood 2.6 g/dL (3.4-5.0); Anion Gap 6 mmol/L (6-16); Blood Urea Nitrogen 10 mg/dL (8-24); Bun/Creatinine Ratio 11.8 (12.0-20.0); CO2, Blood 28 mmol/L (21-32); Calcium, Blood 5.6 mg/dL (8.5-10.1); Chloride, Blood 104 mmol/L (98-108); Creatinine, Blood 0.85 mg/dL (0.60-1.20); Glomerular Filtration Rate 90 (60-); Glucose, Blood 99 mg/dL (70-99); Phosphorus, Blood 2.8 mg/dL (2.5-4.9); Potassium, Blood 3.7 mmol/L (3.5-5.5); Sodium, Blood 138 mmol/L (136-145)
[2021-11-29 15:35] LABS: Albumin, Blood 2.8 g/dL (3.4-5.0); Anion Gap 7 mmol/L (6-16); Blood Urea Nitrogen 9 mg/dL (8-24); Bun/Creatinine Ratio 10.4 (12.0-20.0); CO2, Blood 27 mmol/L (21-32); Calcium, Blood 6.5 mg/dL (8.5-10.1); Chloride, Blood 102 mmol/L (98-108); Creatinine, Blood 0.86 mg/dL (0.60-1.20); Glomerular Filtration Rate 90 (60-); Glucose, Blood 119 mg/dL (70-99); Phosphorus, Blood 2.9 mg/dL (2.5-4.9); Potassium, Blood 4.1 mmol/L (3.5-5.5); Sodium, Blood 136 mmol/L (136-145)
--- NOTE | 2021-11-29 17:30 | NUR ---
TO: DR. MCDONNELL/FARRAH SORTO- INCREASE CALCIUM GLUCONATE TO 60 ML/HR, REPEAT BMP AT [address] MCDONNELL WITH LAB RESULT. ORDERS PROCESSED.
--- NOTE | 2021-11-29 19:19 | NUR ---
SHIFT SUMMARY: PT A/O X 4, STANDBY ASSIST IN ROOM. PT IS SHAKY ON HIS FEET AND NEEDS ASSISTANCE USING URINAL AT BEDSIDE. PT PLEASANT AND COOPERATIVE WITH CARE. PT CALCIUM LEVEL 6.[address] MCDONNELL CALLED AND PLACED ORDERS FOR PATIENT. CALCIUM GLUCONATE RUNNING AT 60/HR AT THIS TIME. ANASARCA MUCH IMPROVED. PT TOLERATING FOOD WELL. ORDERED A MENU TO FILL OUT FOR HIM SO HE WOULD GET FOOD HE PREFERRED WHICH HE REPORTED HELPED WITH HIS INTAKE.
[2021-11-29 21:12] LABS: Bun/Creatinine Ratio 10.5 (12.0-20.0); Creatinine, Blood 0.95 mg/dL (0.60-1.20); Magnesium, Blood 1.8 mg/dL (1.6-2.4); Potassium, Blood 4.5 mmol/L (3.5-5.5)
--- NOTE | 2021-11-30 05:07 | NUR ---
SHIFT SUMMARY 76 YR M ADMITTED ON 11/21/21 FOR ANASARCA. FULL CODE. NO ACUTE CHANGES THIS SHIFT. PY'S CALCIUM WENT UP TO 7.0. DR. MCDONNELL WAS CALLED AND INFORMED AT APPROX 2114 AND HE STATED TO CONTINUE THE CALCIUM GLUTONATE AT THE SAME RATE OF 60/ML/HR. PT IS INDEPENDANT IN THE ROOM AND IS VERY FRIENDLY AND COOPERATIVE. HE IS ENCOURAGED THAT HIS CALCIUM LEVEL IS IMPROVING.
[2021-11-30 05:49] LABS: Albumin, Blood 2.6 g/dL (3.4-5.0); Anion Gap 7 mmol/L (6-16); Blood Urea Nitrogen 8 mg/dL (8-24); Bun/Creatinine Ratio 9.8 (12.0-20.0); CO2, Blood 26 mmol/L (21-32); Calcium, Blood 6.9 mg/dL (8.5-10.1); Chloride, Blood 103 mmol/L (98-108); Creatinine, Blood 0.81 mg/dL (0.60-1.20); Glomerular Filtration Rate 91 (60-); Glucose, Blood 99 mg/dL (70-99); Magnesium, Blood 1.6 mg/dL (1.6-2.4); Phosphorus, Blood 2.9 mg/dL (2.5-4.9); Potassium, Blood 4.2 mmol/L (3.5-5.5); Sodium, Blood 136 mmol/L (136-145)
[2021-11-30 11:52] LABS: Albumin, Blood 2.7 g/dL (3.4-5.0); Anion Gap 5 mmol/L (6-16); Blood Urea Nitrogen 7 mg/dL (8-24); Bun/Creatinine Ratio 8.9 (12.0-20.0); CO2, Blood 28 mmol/L (21-32); Calcium, Blood 7.7 mg/dL (8.5-10.1); Chloride, Blood 103 mmol/L (98-108); Creatinine, Blood 0.78 mg/dL (0.60-1.20); Glomerular Filtration Rate 92 (60-); Glucose, Blood 101 mg/dL (70-99); Phosphorus, Blood 2.7 mg/dL (2.5-4.9); Potassium, Blood 4.7 mmol/L (3.5-5.5); Sodium, Blood 136 mmol/L (136-145)
[2021-11-30 18:36] LABS: Albumin, Blood 2.8 g/dL (3.4-5.0); Anion Gap 4 mmol/L (6-16); Blood Urea Nitrogen 8 mg/dL (8-24); Bun/Creatinine Ratio 9.1 (12.0-20.0); CO2, Blood 27 mmol/L (21-32); Calcium, Blood 8.2 mg/dL (8.5-10.1); Chloride, Blood 104 mmol/L (98-108); Creatinine, Blood 0.88 mg/dL (0.60-1.20); Glomerular Filtration Rate 89 (60-); Glucose, Blood 110 mg/dL (70-99); Phosphorus, Blood 3.1 mg/dL (2.5-4.9); Potassium, Blood 4.7 mmol/L (3.5-5.5); Sodium, Blood 135 mmol/L (136-145)
--- NOTE | 2021-11-30 20:50 | NUR ---
ASSUMED CARE. AOX3, ABLE TO MAKE NEEDS KNOWN. LS DIM IN BASES, VS WNL. SATS >95% ON RA. STATES HE HAS PAIN MOSTLY WHEN HE GETS UP AND MOVES BUT ITS TOLERABLE, DENIES WANT FOR PAIN MEDICATIONS. EDEMA NOTED TO BLE MOSTLY IN THE UPPER THIGH AREA, SKIN IS WARM AND RED. STATES IT IS GETTING BETTER. RASHAD GLUCONATE GTT INFUSING AT 60ML/HR. DENIES ANY NEEDS AT THIS TIME. CALL LIGHT IS IN REACH.
--- NOTE | 2021-11-30 22:07 | NUR ---
DR. MCDONNELL CALLED, RATE CHANGE TO CALCIUM GLUCONATE GTT ORDERED. RATE CHANGED TO 40.
--- NOTE | 2021-11-30 22:40 | NUR ---
DECREASED CALCIUM GTT TO 40ML/HR PER ORDERS. PATIENT DENIES ANY NEEDS AT THIS TIME. CALL LIGHT IN REACH.
--- NOTE | 2021-12-01 07:41 | NUR ---
SHIFT SUMMARY: AOX3, ABLE TO GET UP WITH WALKER TO BATHROOM. SLEPT OFF AND ON T/O SHIFT. STATES HE FEELS HE IS DOING BETTER AND HOPES TO GO HOME TODAY. CALCIUM GLUCONATE GTT DECREASED TO 40ML/HR, STARTED ON PO CALCIUM. CONTINUES TO HAVE SWELLING TO SIDES OF ABD, POSTERIOR THIGHS AND CALVES. TOLERABLE PAIN DENIES NEED FOR PAIN MEDS. VS WNL, NO OTHER ACUTE CHANGES THIS SHIFT.
[2021-12-01] MEDS ORDERED: TORSE20 PO (09:51)
[2021-12-01] MEDS ORDERED: CALCIUM CITRAT200 MG PO (09:53)
[2021-12-01] MEDS ORDERED: METO25ER PO (09:54)
[2021-12-01] MEDS ORDERED: MAG-OXIDE MAGN200 MG PO (09:54)
[2021-12-01] MEDS ORDERED: VANCOCIN HCL250 MG PO (09:55)
[2021-12-01] MEDS ORDERED: POTA10T PO (09:55)
[2021-12-01] MEDS ORDERED: VISBIOME 112.51 EACH PO (09:56)
[2021-12-01 10:53] LABS: Albumin, Blood 2.7 g/dL (3.4-5.0); Anion Gap 6 mmol/L (6-16); Blood Urea Nitrogen 8 mg/dL (8-24); CO2, Blood 27 mmol/L (21-32); Calcium, Blood 7.6 mg/dL (8.5-10.1); Chloride, Blood 104 mmol/L (98-108); Glomerular Filtration Rate 92 (60-); Glucose, Blood 100 mg/dL (70-99); Phosphorus, Blood 2.9 mg/dL (2.5-4.9); Potassium, Blood 4.8 mmol/L (3.5-5.5); Sodium, Blood 137 mmol/L (136-145)
--- NOTE | 2021-12-01 14:17 | NUR ---
PT SITTING UP TO CHAIR AT THIS AM, DURING SHIFT REPORT; WATCHING TV. NO C/O. PLEASANT AND CO-OP. UP INDEPENDENTLY TO BTHRM USING FWW. DR BARRY IN TO SEE PT AND DISCUSS PLAN OF CARE. PT TO D/C TO HOME. PT NOTIFIED DIRECTOR TRIAL FOR P/U. D/C INSTRUCTIONS REVIEW WITH PT. MEDS FAXED TO [facility] PER PT REQUEST, [facility] F[facility] PRESCRIPTIONS OVER WEEKEND. PT ASSISTED OUT TO CARE GIVERS CAR VIA W/C.
== END 2021-12-01 11:30 | disposition home or self-care (01) | DRG 291 ==
LOC: ER 18:56 → MEDS 18:57
PROVIDERS: Emergency Medicine; Internal Medicine; Internal Medicine Endocrinology, Diabetes & Metabolism; ADMIT Internal Medicine
DX: I11.0 Hypertensive heart disease with heart failure (principal); I50.43 Acute on chronic combined systolic (congestive) and diastolic (congestive) heart failure; A04.72 Enterocolitis due to Clostridium difficile, not specified as recurrent; C79.51 Secondary malignant neoplasm of bone; I48.20 Chronic atrial fibrillation, unspecified; N17.9 Acute kidney failure, unspecified; E87.1 Hypo-osmolality and hyponatremia; E83.42 Hypomagnesemia; C61 Malignant neoplasm of prostate; E88.09 Other disorders of plasma-protein metabolism, not elsewhere classified; E87.6 Hypokalemia; E83.51 Hypocalcemia; M10.9 Gout, unspecified; E78.00 Pure hypercholesterolemia, unspecified; W19.XXXA Unspecified fall, initial encounter; R29.6 Repeated falls; K21.9 Gastro-esophageal reflux disease without esophagitis; T46.1X5A Adverse effect of calcium-channel blockers, initial encounter; G47.33 Obstructive sleep apnea (adult) (pediatric); G62.9 Polyneuropathy, unspecified; Z88.8 Allergy status to other drugs, medicaments and biological substances; Z79.899 Other long term (current) drug therapy; Z79.01 Long term (current) use of anticoagulants; Z98.890 Other specified postprocedural states; Z98.42 Cataract extraction status, left eye; Z98.41 Cataract extraction status, right eye; Z87.891 Personal history of nicotine dependence; Z92.21 Personal history of antineoplastic chemotherapy; Z99.81 Dependence on supplemental oxygen
CPT/HCPCS: 36415; 71045; 80048; 80053; 80069; 82306; 82310; 82330; 82530; 82652; 82803; 83735; 83880; 83970; 84100; 84439; 84443; 84484; 85025; 87324; 87507; 93005; 93010; 94760; 96374; 96375; 96376; 97110; 97116; 97162; 97530; 99285-25; A9270; G0378; J0610; J2405; J3475; J7030